=== PATIENT | female | born 1960 | race Caucasian/White ===

== ENCOUNTER 2021-10-05 13:14 | Outpatient (REF) | payer OTHER, SELFPAY ==
--- NOTE | ~2021-10-05 | XR_ITS ---
EXAMINATION: XR CERVICAL SPINE CLINICAL INFORMATION: Neck pain with radiation right upper extremity. No known injury. COMPARISON: Radiographs cervical spine 06/28/2015 TECHNIQUE: Cervical spine is imaged in 6 views: AP, lateral, bilateral oblique, and odontoid x2. FINDINGS: There is mild straightening cervical lordosis. The vertebral bodies are normal in height. The odontoid appears intact. There is no vertebral compression, spondylolisthesis, destructive process, or prevertebral soft tissue swelling. Again, there are degenerative disc changes C5-C6 with mild disc narrowing and vertebral spurring. There are also interval degenerative disc changes at C6-C7. The oblique views show bilateral foraminal spurring at C5-C6, greater on right and also foraminal spurring on left at C6-C7. XR/XR cervical spine min 6V IMPRESSION: 1. Degenerative disc changes C5-C6 and C6-C7. 2. Bilateral foraminal spurring C5-C6 and spurring left C6-C7.
== END 2021-10-05 13:15 | disposition home or self-care (01) ==
LOC: HO.XRAY 13:14
PROVIDERS: PCP Family Medicine; Visit Provider Family Medicine
DX: M54.2 Cervicalgia (principal)
CPT/HCPCS: 72052

== ENCOUNTER 2022-01-02 23:29 | Emergency (ER) | payer OTHER, SELFPAY ==
[2022-01-02 23:40] VITALS: BP 186/117; PULSE 116; RESP 20; TEMP 37.3; O2SAT 95; BMI 34.9
--- NOTE | 2022-01-03 01:53 | ED.GENADULT ---
HPI - General Adult General Chief complaint: General Medical Stated complaint: prolapsed rectum Time Seen by Provider: 01/03/22 01:52 Source: patient Mode of arrival: ambulatory Limitations: no limitations History of Present Illness HPI narrative: patient's history of rectal prolapse had multiple surgeries in the past while trying to move her bowels he noticed prolapse of the rectum about 8 hours ago lower abdominal cramps no bleeding Related Data Allergies Allergy/AdvReac Type Severity Reaction Status Date / Time ENVIRONMENTAL Allergy Mild SNEEZING, Uncoded 05/06/20 15:10 RUNNY EYES Review of Systems Review of Systems: Yes all other systems are reviewed and are negative [facility] Social History Social History Advance Directives: No Advance Directives Information Provided: No Physical Exam ED Vital Signs: Vital Signs - 24 hr 01/02/22 23:40 01/03/22 02:09 Temperature 99.1 F 98.9 F Pulse Rate 116 H 87 Respiratory Rate 20 18 Blood Pressure 186/117 H 154/87 H Pulse Oximetry 95 98 BMI result Body Mass Index 34.9 Appearance: Alert. Oriented X3. No acute distress. CVS: Normal heart rate and rhythm. Pulses normal. Respiratory: No respiratory distress. Equal air entry bilateral, Abdomen: Soft and nontender. Bowel sounds are present, no mass palpable, Rectal: minor rectal mucosa prolapse no full-thickness prolapse Skin: Skin warm and dry. Normal skin color. Normal skin turgor. Extremities: No lower extremity edema. No calf tenderness Neuro: Oriented X 3. No motor deficit. No sensory deficit.No cerebellar signs , cranial nerves II-XII intact Medical Decision Making MDM Narrative Medical decision making narrative: patient with minor rectal mucosal prolapse which was pushed back without much resistance patient felt comfortable after that discharge patient home advised to follow up with surgeon Discharge Plan Discharge Clinical Impression: Partial rectal prolapse Patient Disposition: Home, Self-Care Instructions: Rectal Prolapse (ED) Additional Instructions: avoid straining follow-up with surgeon as advised Referrals: Steven Mitchell MD [Physician] - 1 week Interventions: ED Discharge Assessment Last Done: 01/03/22 02:10 Discharge Date/Time: 01/03/22 02:10
--- NOTE | 2022-01-03 01:56 | PC.NURSE ---
Dr. Hunt and Jessica MONTEMAYOR examined pt and reduced her prolapsed rectum. Pt is now ready for discharge.
[2022-01-03 02:09] VITALS: BP 154/87; PULSE 87; RESP 18; TEMP 37.2; O2SAT 98
== END 2022-01-03 02:10 | disposition home or self-care (01) ==
LOC: HO.ED 03-16 12:03
PROVIDERS: Emergency Provider Internal Medicine; PCP Family Medicine
DX: K62.2 Anal prolapse (principal)
CPT/HCPCS: 99281; 99284

== ENCOUNTER → 2022-01-12 14:00 | Outpatient (BNVA) | payer OTHER, SELFPAY | PROVIDERS: PCP Family Medicine; Referring Provider Family Medicine; Visit Provider Surgery | DX: N81.6 Rectocele (principal) | CPT/HCPCS: 46600 ==

== ENCOUNTER 2022-01-13 07:58 | Outpatient (REF) | payer OTHER, SELFPAY ==
[2022-01-13 09:06] LABS: Estimated Average Glucose 123 mg/dL; Hemoglobin A1c % 5.9 %
[2022-01-13 09:29] LABS: Alanine Aminotransferase 20 U/L (0-31); Aspartate Amino Transferase 18 U/L (5-31); Blood Urea Nitrogen 17 mg/dL (9-16); Estimated Glomerular Filt Rate > 60; Glucose Fasting 126 mg/dL (60-99)
[2022-01-13 09:37] LABS: Creatinine Urine 163.78 mg/dL; Microalbum/Creatinine Ratio Ur 9.7 ug/mg cr
== END 2022-01-13 07:59 | disposition home or self-care (01) ==
LOC: HO.LAB 07:58
PROVIDERS: PCP Family Medicine; Visit Provider Family Medicine
DX: E11.9 Type 2 diabetes mellitus without complications (principal); E78.00 Pure hypercholesterolemia, unspecified; Z79.899 Other long term (current) drug therapy
CPT/HCPCS: 36415; 82043; 82550; 82565; 82947; 83036; 84450; 84460; 84520

== ENCOUNTER 2022-11-17 07:54 | Outpatient (REF) | payer OTHER, SELFPAY ==
[2022-11-17 12:27] LABS: Estimated Average Glucose 120 mg/dL; Hemoglobin A1c % 5.8 %
[2022-11-17 12:32] LABS: Cholesterol 172 mg/dL; Glucose Fasting 111 mg/dL (60-99); HDL Cholesterol 51 mg/dL; LDL Cholesterol Calculated 69 mg/dl; Triglycerides 262 mg/dL
[2022-11-17 13:05] LABS: Creatinine Urine 129.47 mg/dL; Microalbum/Creatinine Ratio Ur 14.6 ug/mg cr
== END 2022-11-17 07:55 | disposition home or self-care (01) ==
LOC: HO.10HDL 07:54
PROVIDERS: Visit Provider Family Medicine
DX: E11.9 Type 2 diabetes mellitus without complications (principal); E78.00 Pure hypercholesterolemia, unspecified
CPT/HCPCS: 36415; 80061; 82043; 82947; 83036

== ENCOUNTER 2023-06-15 11:14 | Outpatient (REF) | payer OTHER, SELFPAY ==
--- NOTE | ~2023-06-15 | XR_ITS ---
EXAMINATION: XR CHEST CLINICAL INFORMATION: Cough for 2 weeks COMPARISON: 03/24/2020 TECHNIQUE: 2 views of the chest were obtained. FINDINGS: There is no gross pneumothorax. Heart size is normal. No pleural effusion. No focal consolidation to suggest pneumonia. Mild degenerative changes in the thoracic spine. XR/XR chest 2V IMPRESSION: No evidence of pneumonia.
== END 2023-06-15 11:15 | disposition home or self-care (01) ==
LOC: HO.XRAY 11:14
PROVIDERS: PCP Family Medicine; Visit Provider Family Medicine
DX: R05.9 Cough, unspecified (principal)
CPT/HCPCS: 71046

== ENCOUNTER 2023-07-10 08:45 | Outpatient (REF) | payer OTHER, SELFPAY ==
[2023-07-10 10:32] LABS: MANUAL DIFF FLAG NO
[2023-07-10 10:40] LABS: Basophils Absolute Auto 0.1 X10*3/uL (0.0-0.2); Basophils Percent Auto 0.6 % (0-2); Eosinophils Absolute Auto 0.3 X10*3/uL (0.0-0.4); Eosinophils Percent Auto 2.5 % (0-4); Hematocrit 38.4 % (37.0-47.0); Hemoglobin 12.3 g/dl (12.0-16.0); Imm Gran Abs Auto 0.03 X10*3/uL (0.00-0.03); Imm Gran Pct Auto 0.3 % (0.0-0.4); Lymphocytes Absolute Auto 2.3 X10*3/uL (1.2-4.9); Mean Corpuscular Hemoglobin 28.8 pg (27.0-33.0); Mean Corpuscular Volume 89.9 fL (80.0-98.0); Mean Platelet Volume 9.6 fL (9.4-12.3); Monocytes Absolute Auto 0.7 X10*3/uL (0.1-1.2); Monocytes Percent Auto 6.5 % (2-11); Neutrophils Absolute Auto 7.5 x10*3/uL (2.0-8.3); Neutrophils Percent Auto 69.1 % (45-73); Platelet Count 393 X10*3/uL (160-400); Red Blood Count 4.27 X10*6/uL (4.20-5.50); Red Cell Distribution Width 13.4 % (11.0-16.0); White Blood Count 10.9 X10*3/uL (4.8-10.8)
[2023-07-10 10:48] LABS: Estimated Average Glucose 128 mg/dL; Hemoglobin A1c % 6.1 % (<6.0)
[2023-07-10 10:59] LABS: Alanine Aminotransferase 15 U/L (0-31); Anion Gap 8 (12-20); Aspartate Amino Transferase 17 U/L (5-31); Blood Urea Nitrogen 11 mg/dL (9-16); Carbon Dioxide 27 mmol/L (22-29); Chloride 108 mmol/L (96-108); Estimated Glomerular Filt Rate > 60; Glucose Fasting 117 mg/dL (60-99); Lipase 16 U/L (8-78); Potassium 4.4 mmol/L (3.3-5.1); Sodium 139 mmol/L (135-145)
[2023-07-10 11:21] LABS: Erythrocyte Sedimentation Rate 31 MM/HR (0-20)
== END 2023-07-10 08:46 | disposition home or self-care (01) ==
LOC: HO.10HDL 08:45
PROVIDERS: Visit Provider Family Medicine
DX: R13.10 Dysphagia, unspecified (principal); I10 Essential (primary) hypertension; E11.9 Type 2 diabetes mellitus without complications; E78.00 Pure hypercholesterolemia, unspecified; Z79.899 Other long term (current) drug therapy
CPT/HCPCS: 36415; 80051; 82550; 82565; 82947; 83036; 83690; 84450; 84460; 84520; 85025; 85652

== ENCOUNTER 2024-02-08 07:40 | Outpatient (REF) | payer OTHER, SELFPAY ==
[2024-02-08 11:04] LABS: Alanine Aminotransferase 18 U/L (0-31); Anion Gap 10 (12-20); Aspartate Amino Transferase 20 U/L (5-31); Blood Urea Nitrogen 13 mg/dL (9-16); Carbon Dioxide 26 mmol/L (22-29); Chloride 109 mmol/L (96-108); Estimated Glomerular Filt Rate > 60; Glucose Fasting 122 mg/dL (60-99); Potassium 4.1 mmol/L (3.3-5.1); Sodium 141 mmol/L (135-145)
[2024-02-08 11:08] LABS: Estimated Average Glucose 123 mg/dL; Hemoglobin A1C 148.5091 umol/L; Hemoglobin A1c % 5.9 % (<6.0)
[2024-02-08 11:43] LABS: Creatinine Urine 150.43 mg/dL; Microalbum/Creatinine Ratio Ur 15.9 ug/mg cr (<30)
== END 2024-02-08 07:41 | disposition home or self-care (01) ==
LOC: HO.10HDL 07:40
PROVIDERS: Visit Provider Family Medicine
DX: E11.9 Type 2 diabetes mellitus without complications (principal); E78.00 Pure hypercholesterolemia, unspecified; I10 Essential (primary) hypertension
CPT/HCPCS: 36415; 80051; 82043; 82550; 82565; 82570; 82947; 83036; 84450; 84460; 84520

== ENCOUNTER 2024-09-09 10:21 | Inpatient (IN) | payer OTHER, SELFPAY ==
--- NOTE | ~2024-09-09 | CT_ITS ---
EXAMINATION: CT ABDOMEN PELVIS WITHOUT IV CONTRAST HISTORY: LLQ pain COMPARISON: Comparison is made with the prior examination dated 01/17/2017. TECHNIQUE: CT scan of the abdomen and pelvis was performed without contrast using standard departmental protocol. Coronal and sagittal reformatted images were generated and reviewed. Oral contrast material was not administered at the request of the referring physician. This CT exam was performed with one or more of the following dose reduction techniques: automated exposure control, adjustment of the mA and/or kV according to patient size, use of iterative reconstruction technique. DLP: 576 mGy-cm FINDINGS: LOWER CHEST: The visualized lung bases are clear. There is no pleural effusion. CARDIOVASCULATURE: The heart is normal in size. There is no pericardial effusion. LIVER: The liver is normal in size and contour. The liver demonstrates diffusely decreased attenuation, consistent with steatosis. GALLBLADDER / BILE DUCTS: There are multiple layering calculi in the gallbladder. There is no intra or extrahepatic biliary ductal dilatation. SPLEEN: The spleen is normal in size and has an unremarkable unenhanced appearance. PANCREAS: The pancreas has an unremarkable unenhanced appearance. ADRENAL GLANDS: Unremarkable. KIDNEYS/RETROPERITONEUM: No renal calculi are identified. There is no hydronephrosis. LYMPH NODES: No retroperitoneal lymphadenopathy is identified in the abdomen or pelvis. VASCULATURE: The abdominal aorta is normal in caliber. MESENTERY/PERITONEUM: No free fluid. No masses. There is no free intraperitoneal gas. STOMACH: There is a large hiatal hernia. The remainder of the stomach is unremarkable. SMALL BOWEL: The small bowel is normal in caliber. COLON: There is extensive diverticulosis of the colon. There is moderate wall thickening and pericolonic inflammatory stranding about the distal descending colon, consistent with diverticulitis. There is no associated extraluminal gas or loculated fluid collection. APPENDIX: Normal. URINARY BLADDER/PELVIC ORGANS: There is a bubble of gas in the urinary bladder which may be due to recent instrumentation. The patient is status post hysterectomy. BONES / SOFT TISSUES: No suspicious bony or soft tissue abnormalities. CT/CT abdomen pelvis wo IV con IMPRESSION: 1. Diverticulitis of the distal descending colon, as described. 2. Probable gas in the urinary bladder which may be due to recent Mr. mentation. Clinical correlation is recommended. 3. Hepatic steatosis. 4. Cholelithiasis. 5. Large hiatal hernia. Electronically signed by: Martin Mendez MD 09/09/2024 03:18 PM RASHID
--- NOTE | 2024-09-09 10:37 | ED_ITS ---
HPI - Abdominal Pain General Chief Complaint: Abdominal Pain Stated Complaint: Abd pain - sent by Dr Trujillo Seen by Provider: 09/09/24 17:35 Source: patient Mode of arrival: ambulatory Limitations: no limitations History of Present Illness ED Provider: Bhargavi Romero NP HPI narrative: Patient is a 64-year-old female with past medical history of endometriosis s/p hysterectomy, GERD, diverticulosis, rectocele s/p repair in her 40s who presents emergency department for evaluation of lower abdominal pain. Reports onset 2 nights ago night with diffuse pain across the lower abdomen progressively worsening today is notably painful to the left lower quadrant associated nausea but no vomiting. She denies associated fevers, chills, nausea, vomiting. She denies genitourinary symptoms. She does admit that she frequently has to manually evacuate her rectum by inserting her fingers into the vagina pushing backwards to pass a bowel movement. She has had history of rectocele repair about 25 years ago, endorses complications associated this with bleeding and ultimately had revision she was reluctant to recently have consideration for another surgery, though she saw Dr. George here he referred her to a specialist in [place] for revision but she did not wish to pursue this as of yet. Though she states that she might consider this given the recent increase in the need for manual evacuation Related Data Home Medications ?Medication ?Instructions ?Recorded ?Confirmed pantoprazole 40 mg tablet,delayed 40 mg PO BEDTIME 01/12/22 09/09/24 release simvastatin 40 mg tablet 40 mg PO BEDTIME 01/12/22 09/09/24 ascorbic acid (vitamin C) 500 mg 500 mg PO DAILY 09/09/24 09/09/24 tablet (Vitamin C) cetirizine 10 mg tablet (Zyrtec) 10 mg PO DAILY 09/09/24 09/09/24 docusate sodium 100 mg tablet 100 mg PO BEDTIME 09/09/24 09/09/24 magnesium oxide 400 mg PO DAILY 09/09/24 09/09/24 multivitamin 1 tab PO DAILY 09/09/24 09/09/24 Allergies Allergy/AdvReac Type Severity Reaction Status Date / Time ENVIRONMENTAL Allergy Mild SNEEZING, Uncoded 09/09/24 10:41 RUNNY EYES Review of Systems Review of Systems Yes all other systems are reviewed and are negative PMFSH Past Medical History Attestation statement: The following information was validated with the patient. Source: old records reviewed Medical History (Updated 09/09/24 @ 19:31 by Bhargavi Romero CNP) Rectocele Hyperlipidemia GERD (gastroesophageal reflux disease) Endometriosis Surgical History History of bilateral breast reduction surgery History of hysterectomy Social History Social History Patient Tobacco Use Status: Never used Tobacco Smoked in Last 30 Days: No Use of substances other than those prescribed or required for medical reasons: No Advance Directives: No Advance Directives Information Provided: Yes Do you have a plan to hurt others: No Plan Nutrition Risks: No Nutritional Risk Physical Exam ED Vital Signs: Vital Signs - 24 hr 09/09/24 10:40 09/09/24 18:32 Temperature 98.6 F 98.1 F Pulse Rate 111 H 80 Respiratory Rate 18 16 Blood Pressure 177/98 H 151/91 H Pulse Oximetry 97 95 Oxygen Delivery Method Room Air Room Air BMI result Body Mass Index 33.4 Appearance: Alert.?Oriented to person, place and time. No acute distress.?Normal affect.?? Neck: Normal inspection.? Neck supple.?? CVS: Heart sounds normal. Normal heart rate and rhythm.? Pulses normal.?? Respiratory: No respiratory distress.? Lung sounds clear to auscultation bilaterally?? Abdomen: Soft and non-tender. No rebound tenderness at McBurney's point. Negative psoas sign. Negative Rovsing sign. Negative Dillard sign. No CVAT. Normoactive bowel sounds. No pulsatile mass.?? Skin: Skin warm and dry.? Normal skin color.? Extremities: No lower extremity edema.? Neuro: Moves all extremities spontaneously. Sensation intact bilaterally. Ambulates with normal steady gait. Course Course Course Narrative: This is a Rapid Medical Examination (RME) performed by Joya Mcknight PA-C in triage. Full HPI, ROS, assessment and treatment plan per primary provider in the Main ED. 64 yo female with history of endometrosis s/p hyperectomy, GERD, diverticulosis, rectocele s/p repair who presents to the ER for evaluation of LLQ pain that started yesterday and got worse last night. + nausea but no vomiting. Has been constipated and only having small BMs. No fevers. Pain currently 7/10. Abd is soft with LLQ tenderness to deep palpation. HR 110s, appears uncomfortable. Plan: labs, UA, imaging per primary provider Medical Decision Making Medical Decision Making [facility] Narrative: [place]ks of care for patient 18:15 Patient is a 64-year-old female with past medical history of endometriosis s/p hysterectomy, GERD, diverticulosis, rectocele s/p repair in her 40s who presents emergency department for evaluation of lower abdominal pain. Reports onset yesterday night diffuse across the lower abdomen progressively worsening today is notably painful to the left lower quadrant associated nausea but no vomiting. She arrived mildly tachycardic but afebrile. Reviewed laboratory indices obtained prior to my assumption of care; CBC revealing leukocytosis of 15,700 with left shift, no anemia, no thrombocytopenia. No electrolyte derangement. No MIRIAM. LFTs and lipase within normal range. Urinalysis with microscopic hematuria 1+ leukocyte esterase trace urine bacteria, but no reported genitourinary symptoms to suggest acute UTI. Viral serologies are negative. A CT scan of the abdomen and pelvis without IV contrast was obtained prior to my assumption of care; revealing diverticulitis of the descending colon without evidence of perforation or abscess, probable gas in the urinary bladder may be due to recent instrumentation. Denies any recent bladder instrumentation to suggest a cause for this, given aforementioned urinalysis findings although no genitourinary symptoms, considered possibility for emphysematous cystitis, or rectovesical fistula secondary to diverticulitis. On my interpretation of CT imaging I do not see adjacent bowel to the area of gas/air present in the bladder. I have consulted with surgery, Dr. Steinberg review CT imaging to weigh in for interpretation. Given infectious etiology and leukocytosis she meets SIRS criteria, given CT findings will cover with IV Zosyn, will obtain blood cultures and lactic acid, no hypotension at this time. Patient receive additionally 1 L normal saline IV fluid Differential Diagnosis Differential Diagnoses: The differential diagnosis associated with the presentation includes (See narrative above) Admitting to surgery service under Dr. 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 (See narrative above) 09/09/24 11:45 09/09/24 11:45 Labs: Lab Results 09/09/24 09/09/24 09/09/24 Range/Units 11:41 11:45 11:46 WBC 15.7 H (4.8-10.8) X10*3/uL RBC 4.90 (4.20-5.50) X10*6/uL Hgb 14.7 (12.0-16.0) g/dl Hct 43.3 (37.0-47.0) % MCV 88.4 (80.0-98.0) fL MCH 30.0 (27.0-33.0) pg MCHC 33.9 (31.0-35.0) g/dl RDW 13.2 (11.0-16.0) % Plt Count 312 (160-400) X10*3/uL MPV 9.1 L (9.4-12.3) fL Immature Gran % (Auto) 0.3 (0.0-0.4) % Neut % (Auto) 70.4 (45-73) % Lymph % (Auto) 20.3 (20-40) % [place] % (Auto) 8.4 (2-11) % Eos % (Auto) 0.3 (0-4) % Baso % (Auto) 0.3 (0-2) % Lymph # (Auto) 3.2 (1.2-4.9) X10*3/uL [place] # (Auto) 1.3 H (0.1-1.2) X10*3/uL Eos # (Auto) 0.1 (0.0-0.4) X10*3/uL Baso # (Auto) 0.0 (0.0-0.2) X10*3/uL Abs Immat Gran (auto) 0.05 H (0.00-0.03) X10*3/uL Absolute Neuts (auto) 11.1 H (2.0-8.3) x10*3/uL Absolute Nucleated RBC 0.000 (0.0-0.012) X10*3/uL Nucleated RBC % (auto) 0.0 (0.0-0.2) /100WBC Sodium 136 (135-145) mmol/L Potassium 4.4 (3.3-5.1) mmol/L Chloride 104 (96-108) mmol/L Carbon Dioxide 24 (22-29) mmol/L Anion Gap 12 (12-20) BUN 10 (9-16) mg/dL Creatinine 0.72 (0.5-1.4) mg/dL Estim Creat Clear Calc 71.7 Estimated GFR > 60 Random Glucose 134 H (60-115) mg/dL Lactic Acid (0.5-2.0) mmol/L Calcium 9.5 (8.4-10.2) mg/dL Magnesium 2.3 (1.6-2.6) mg/dL Total Bilirubin 0.7 (0.0-1.0) mg/dL Direct Bilirubin 0.2 (0.0-0.5) mg/dL AST 19 (5-31) U/L ALT 23 (0-31) U/L Alkaline Phosphatase 86 (39-117) U/L Total Protein 8.7 H (6.5-8.0) g/dL Albumin 4.5 (3.5-5.0) g/dL Lipase 15 (8-78) U/L Urine Color Dark Yellow Urine Appearance Clear Urine pH 6.5 (5.0-9.0) Ur Specific [place] 1.025 (1.005-1.025) Urine Protein 30 (1+) H (Neg-Trace) mg/dL Urine Glucose (UA) Negative (Negative) mg/dL Urine Ketones 15 (Negative) mg/dL Urine Blood Large (3+) H (Negative) Urine Nitrite Negative (Negative) Ur Leukocyte Esterase Small (1+) H (Negative) Urine RBC >20 H (0-2) /HPF Urine WBC 0-5 (0-5) /HPF Ur Squamous Epith Cells 0-2 (0-2) /HPF Urine Bacteria Trace (None Seen) Hyaline Casts 0-2 (0-2) /LPF Influenza Type A (PCR) NEGATIVE (Negative) Influenza Type B (PCR) NEGATIVE (Negative) RSV RNA Qual (PCR) NEGATIVE (Negative) SARS-CoV-2 RNA (RT-PCR) NEGATIVE (Negative) 09/09/24 Range/Units 18:48 WBC (4.8-10.8) X10*3/uL RBC (4.20-5.50) X10*6/uL Hgb (12.0-16.0) g/dl Hct (37.0-47.0) % MCV (80.0-98.0) fL MCH (27.0-33.0) pg MCHC (31.0-35.0) g/dl RDW (11.0-16.0) % Plt Count (160-400) X10*3/uL MPV (9.4-12.3) fL Immature Gran % (Auto) (0.0-0.4) % Neut % (Auto) (45-73) % Lymph % (Auto) (20-40) % [place] % (Auto) (2-11) % Eos % (Auto) (0-4) % Baso % (Auto) (0-2) % Lymph # (Auto) (1.2-4.9) X10*3/uL [place] # (Auto) (0.1-1.2) X10*3/uL Eos # (Auto) (0.0-0.4) X10*3/uL Baso # (Auto) (0.0-0.2) X10*3/uL Abs Immat Gran (auto) (0.00-0.03) X10*3/uL Absolute Neuts (auto) (2.0-8.3) x10*3/uL Absolute Nucleated RBC (0.0-0.012) X10*3/uL Nucleated RBC % (auto) (0.0-0.2) /100WBC Sodium (135-145) mmol/L Potassium (3.3-5.1) mmol/L Chloride (96-108) mmol/L Carbon Dioxide (22-29) mmol/L Anion Gap (12-20) BUN (9-16) mg/dL Creatinine (0.5-1.4) mg/dL Estim Creat Clear Calc Estimated GFR Random Glucose (60-115) mg/dL Lactic Acid 1.1 (0.5-2.0) mmol/L Calcium (8.4-10.2) mg/dL Magnesium (1.6-2.6) mg/dL Total Bilirubin (0.0-1.0) mg/dL Direct Bilirubin (0.0-0.5) mg/dL AST (5-31) U/L ALT (0-31) U/L Alkaline Phosphatase (39-117) U/L Total Protein (6.5-8.0) g/dL Albumin (3.5-5.0) g/dL Lipase (8-78) U/L Urine Color Urine Appearance Urine pH (5.0-9.0) Ur Specific [place] (1.005-1.025) Urine Protein (Neg-Trace) mg/dL Urine Glucose (UA) (Negative) mg/dL Urine Ketones (Negative) mg/dL Urine Blood (Negative) Urine Nitrite (Negative) Ur Leukocyte Esterase (Negative) Urine RBC (0-2) /HPF Urine WBC (0-5) /HPF Ur Squamous Epith Cells (0-2) /HPF Urine Bacteria (None Seen) Hyaline Casts (0-2) /LPF Influenza Type A (PCR) (Negative) Influenza Type B (PCR) (Negative) RSV RNA Qual (PCR) (Negative) SARS-CoV-2 RNA (RT-PCR) (Negative) Independent Interpretation I performed an independent interpretation of an: CT Scan (See narrative above) Radiology Impression Discussion of test interpretation with radiology: I have reviewed the radiologist's reading. Radiologist Impression: CT/CT abdomen pelvis wo IV con IMPRESSION: 1. Diverticulitis of the distal descending colon, as described. 2. Probable gas in the urinary bladder which may be due to recent Mr. mentation. Clinical correlation is recommended. 3. Hepatic steatosis. 4. Cholelithiasis. 5. Large hiatal hernia. External Record Review External record reviewed: Outpatient record Prescription Management I considered prescription management with: Pain Medication and Antibiotic Medications Administered Generic Name Dose Route Start Last Admin Trade Name Freq PRN Reason Stop Dose Admin Lactated Ringer's 1,000 mls @ 100 mls/hr 09/09/24 20:00 09/09/24 20:06 Lr IVCONT 100 mls/hr .Q10H YOBANI Administration Piperacillin Sod/Tazobactam 50 mls @ 100 mls/hr 09/10/24 01:00 09/10/24 01:14 Sod 3.375 gm/ Sodium Chloride IV Infused Q6H YOBANI Infusion Melatonin 6 mg 09/09/24 19:54 09/09/24 20:15 Melatonin 3 Mg Tablet PO 6 mg BEDTIME PRN Administration Insomnia Morphine Sulfate 3 mg 09/09/24 19:57 09/10/24 00:06 Morphine Sulfate 4 Mg/Ml Cartridge IVPUSH 3 mg RQ4H PRN Administration Pain, Severe (Pain Scale 7-10) Protocol Ondansetron HCl 4 mg 09/09/24 19:54 09/09/24 23:45 Ondansetron Hcl 4 Mg/2 Ml Vial IVPUSH 4 mg Q8H PRN Administration Nausea and Vomiting Sodium Chloride 3 ml 09/10/24 00:00 09/10/24 00:07 0.9 % Sodium Chloride Flush 3 Ml Syringe IVFLUSH Not Given QSHIFT [facility] Discontinued Medications Generic Name Dose Route Start Last Admin Trade Name Freq PRN Reason Stop Dose Admin Acetaminophen 975 mg 09/09/24 16:41 09/09/24 16:50 Acetaminophen 325 Mg Tablet PO 09/09/24 16:42 975 mg ONCE ONE Administration Famotidine 20 mg 09/09/24 21:00 09/09/24 20:15 Famotidine 20 Mg Tablet PO 20 mg BID YOBANI Administration Piperacillin Sod/Tazobactam 100 mls @ 200 mls/hr 09/09/24 18:31 09/09/24 19:58 Sod 4.5 gm/ Sodium Chloride IV 09/09/24 19:00 Infused ONCE ONE Infusion Sodium Chloride 1,000 mls @ 999 mls/hr 09/09/24 18:45 09/09/24 19:58 Ns IV 09/09/24 19:45 Infused .Q1H1M YOBANI Infusion Discharge Plan Discharge Clinical Impression: Diverticulitis Patient Disposition: Admitted As Inpatient
[2024-09-09 10:40] VITALS: BP 177/98; PULSE 111; RESP 18; TEMP 37; O2SAT 97; BMI 33.4
[2024-09-09 11:49] LABS: MANUAL DIFF FLAG NO
[2024-09-09 11:53] LABS: Basophils Percent Auto 0.3 % (0-2); Eosinophils Absolute Auto 0.1 X10*3/uL (0.0-0.4); Eosinophils Percent Auto 0.3 % (0-4); Hematocrit 43.3 % (37.0-47.0); Hemoglobin 14.7 g/dl (12.0-16.0); Imm Gran Abs Auto 0.05 X10*3/uL (0.00-0.03); Imm Gran Pct Auto 0.3 % (0.0-0.4); Lymphocytes Absolute Auto 3.2 X10*3/uL (1.2-4.9); Lymphocytes Percent Auto 20.3 % (20-40); Mean Corpuscular HGB Conc 33.9 g/dl (31.0-35.0); Mean Corpuscular Volume 88.4 fL (80.0-98.0); Mean Platelet Volume 9.1 fL (9.4-12.3); Monocytes Absolute Auto 1.3 X10*3/uL (0.1-1.2); Monocytes Percent Auto 8.4 % (2-11); Neutrophils Absolute Auto 11.1 x10*3/uL (2.0-8.3); Neutrophils Percent Auto 70.4 % (45-73); Platelet Count 312 X10*3/uL (160-400); Red Cell Distribution Width 13.2 % (11.0-16.0); White Blood Count 15.7 X10*3/uL (4.8-10.8)
[2024-09-09 11:53] LABS: Appearance Urine Clear; Color Urine Dark Yellow; Glucose Urine UA Negative (Negative); Leukocyte Esterase Urine Small (1+) (Negative); Nitrite Urine Negative (Negative); PH 6.5 (5.0-9.0); Specific Gravity - Urine 1.025 (1.005-1.025); UMIC TRIGGER UACC YES; Urine Blood Large (3+) (Negative); Urine Ketones 15 mg/dL (Negative); Urine Protein 30 (1+) mg/dL (Neg-Trace)
[2024-09-09 12:02] LABS: Bacteria Urine Trace (None Seen); Hyaline Casts Urine 0-2 /LPF (0-2); RBC Urine >20 /HPF (0-2); Squamous Epithelial Cell Urine 0-2 /HPF (0-2); UACC Culture Trigger YES; WBC Urine 0-5 /HPF (0-5)
[2024-09-09 12:07] LABS: Alanine Aminotransferase 23 U/L (0-31); Albumin Level 4.5 g/dL (3.5-5.0); Alkaline Phosphatase 86 U/L (39-117); Anion Gap 12 (12-20); Aspartate Amino Transferase 19 U/L (5-31); Bilirubin Direct 0.2 mg/dL (0.0-0.5); Bilirubin Total 0.7 mg/dL (0.0-1.0); Blood Urea Nitrogen 10 mg/dL (9-16); Calcium 9.5 mg/dL (8.4-10.2); Carbon Dioxide 24 mmol/L (22-29); Chloride 104 mmol/L (96-108); Creatinine Clr Calc Pharmacy 71.7; Estimated Glomerular Filt Rate > 60; Glucose Random 134 mg/dL (60-115); Lipase 15 U/L (8-78); Magnesium 2.3 mg/dL (1.6-2.6); Potassium 4.4 mmol/L (3.3-5.1); Sodium 136 mmol/L (135-145); Total Protein 8.7 g/dL (6.5-8.0)
[2024-09-09 12:28] LABS: Influenza A PCR NEGATIVE (Negative); Influenza B PCR NEGATIVE (Negative); Resp Syncy Virus RNA Qual PCR NEGATIVE (Negative); SARS COV2 PCR INHOUSE NEGATIVE (Negative)
[2024-09-09] MEDS: Acetaminophen 325 MG TABLET 975 MG PO (16:50)
[2024-09-09 18:32] VITALS: BP 151/91; PULSE 80; RESP 16; TEMP 36.7; O2SAT 95
[2024-09-09] MEDS: 0.9 % Sodium Chloride 1,000 ML 999 ML IV (18:49)
[2024-09-09 19:10] LABS: Lactic Acid 1.1 mmol/L (0.5-2.0)
[2024-09-09] MEDS: Piperacillin Sodium/Tazobactam 4.5 GM in 0.9 % Sodium Chloride 100 ML IV (19:16)
--- NOTE | 2024-09-09 19:51 | PHA.MEDREC ---
Addendum entered by Vitor Yañez RPh 09/09/24 20:50: Med rec was reviewed by [facility]. Original Note: Pharmacy Consult ? Medication Reconciliation Pharmacy has completed the medication reconciliation. Spoke to patient to confirm med list.
[2024-09-09] MEDS: Lactated Ringers 1,000 ML 100 ML IVCONT (20:06)
[2024-09-09] MEDS: Melatonin 3 MG TABLET 6 MG PO (20:15)
[2024-09-09] MEDS: Famotidine 20 MG TABLET PO (20:15)
[2024-09-09] MEDS: Morphine Sulfate 4 MG/ML CARTRIDGE 3 MG IVPUSH (20:16)
[2024-09-09 21:46] VITALS: BP 170/82; PULSE 74; RESP 16; O2SAT 97
--- NOTE | 2024-09-09 23:34 | P.HPGS_ITS ---
History of Present Illness History of Present Illness Date of Service: 09/09/24 Chief complaint: abdominal pain Narrative: Jenny Mae is a 64 year old female With a known history of diverticulitis in the past who comes in with a bad a 36 hour history of abdominal pain not feeling well consistent with diverticulitis. Here on workup CT scan of the abdomen and pelvis reveals inflammatory changes in the descending colon but also a little bit of air in her bladder. She has not had any Haas's or any instrumentation of her bladder. She has had multiple episodes of diverticulitis in the past. She has also had i significant issues in her youth with endometriosis in his had multiple operations for this. She eventually underwent a hysterectomy and bilateral oophorectomy. Eventually she had issues with a significant rectocele and had an surgical repair of this at [facility] about 25 years ago. This was complicated by some bleeding and other issues which eventually required her to have revision and removal of the mesh for the rectocele repair. As a result the rectocele issue recurred and she did see Dr. George here several years ago who suggested that she be seen in [place] for consideration for revision. At this time she still has to manually evacuate the rectum by putting her fingers in her vagina and pushing back to get the stool out. She goes a little bit multiple times in the morning in order to really try to evacuate as much as possible. She denies any urinary symptoms she denies urinating any stool or air. In addition she also had a Nelly fundoplication in the past, she had a lot of bad heartburn reflux disease. She says this is much improved. CT scan of her abdomen and pelvis does show however significant hiatal hernia with some moderate stomach in the chest. On a day-to-day basis she says this does not bother her though. Review of Systems Review of Systems: Yes all other systems are reviewed and are negative FORMERLY [facility], 1928–1983 Past Medical History Medical History (Updated 09/09/24 @ 19:31 by Bhargavi Romero CNP) Rectocele Hyperlipidemia GERD (gastroesophageal reflux disease) Endometriosis Surgical History Surgical History History of bilateral breast reduction surgery History of hysterectomy Social History Social History Patient Tobacco Use Status: Never used Tobacco Smoked in Last 30 Days: No Use of substances other than those prescribed or required for medical reasons: No Advance Directives: No Advance Directives Information Provided: Yes Do you have a plan to hurt others: No Plan Nutrition Risks: No Nutritional Risk Meds Allergies Allergy/AdvReac Type Severity Reaction Status Date / Time ENVIRONMENTAL Allergy Mild SNEEZING, Uncoded 09/09/24 10:41 RUNNY EYES Active Medications: Current Medications Acetaminophen (Acetaminophen 325 Mg Tablet) 650 mg PO Q6H PRN PRN Reason: Pain, Mild 1-3,fever,headache Calcium Carbonate (Calcium Carbonate 750 Mg Tab.Chew) 750 mg PO Q4H PRN PRN Reason: Heartburn Famotidine (Famotidine 20 Mg Tablet) 20 mg PO BID [facility] Last Admin: 09/09/24 20:15 Dose: 20 mg Lactated Ringer's (Lr) 1,000 mls @ 100 mls/hr IVCONT .Q10H [facility] Last Admin: 09/09/24 20:06 Dose: 100 mls/hr Piperacillin Sod/Tazobactam (Sod 3.375 gm/ Sodium Chloride) 50 mls @ 100 mls/hr IV Q6H [facility] Magnesium Hydroxide (Milk Of Magnesia 30 Ml Oral.Susp) 30 ml PO DAILY PRN PRN Reason: Constipation Melatonin (Melatonin 3 Mg Tablet) 6 mg PO BEDTIME PRN PRN Reason: Insomnia Last Admin: 09/09/24 20:15 Dose: 6 mg Morphine Sulfate (Morphine Sulfate 4 Mg/Ml Cartridge) 3 mg IVPUSH RQ4H PRN; Protocol PRN Reason: Pain, Severe (Pain Scale 7-10) Last Admin: 09/09/24 20:16 Dose: 3 mg Ondansetron HCl (Ondansetron Hcl 4 Mg/2 Ml Vial) 4 mg IVPUSH Q8H PRN PRN Reason: Nausea and Vomiting Sodium Chloride (0.9 % Sodium Chloride Flush 3 Ml Syringe) 3 ml IVFLUSH QSHIFT [facility] Home Medications ?Medication ?Instructions ?Recorded ?Confirmed ?Last Taken ?Type pantoprazole 40 mg tablet,delayed 40 mg PO BEDTIME 01/12/22 09/09/24 09/08/24 History release simvastatin 40 mg tablet 40 mg PO BEDTIME 01/12/22 09/09/24 09/08/24 History ascorbic acid (vitamin C) 500 mg 500 mg PO DAILY 09/09/24 09/09/24 09/08/24 History tablet (Vitamin C) cetirizine 10 mg tablet (Zyrtec) 10 mg PO DAILY 09/09/24 09/09/24 09/08/24 History docusate sodium 100 mg tablet 100 mg PO BEDTIME 09/09/24 09/09/24 09/08/24 History magnesium oxide 400 mg PO DAILY 09/09/24 09/09/24 09/08/24 History multivitamin 1 tab PO DAILY 09/09/24 09/09/24 09/08/24 History Physical Exam Vital Signs: Vital Signs: Last Vital Signs Temp 98.1 F 09/09/24 18:32 Pulse 74 09/09/24 21:46 Resp 16 09/09/24 21:46 BP 170/82 H 09/09/24 21:46 Pulse Ox 97 09/09/24 21:46 O2 Del Method Room Air 09/09/24 21:46 BMI result Body Mass Index 33.4 Const: General: cooperative and acute distress mild Nutritional Appearance: overweight Orientation/consciousness: oriented to person, oriented to place and oriented to time Resp: Effort & Inspection: normal respiratory effort and able to speak in complete sentences Auscultation: clear to auscultation bilaterally Cardio: Rate: regular rate Rhythm: regular rhythm GI: Other: Abdomen is soft nondistended tender in the left lower quadrant and suprapubic area with some mild guarding no rebound no peritoneal signs active bowel sounds no masses noted Skin: General skin exam: no rashes or lesions noted Neuro: General: oriented to person, oriented to place and oriented to time Cranial nerves: Yes CN's II-XII intact bilaterally Extrem: General: Yes normal to inspection Psych: Appearance: grossly normal Mental Status: mental status grossly normal Speech and movement: Normal speech and movement present Affect: normal affect Attitude: cooperative Thought process: Normal thought process present Thought content: Normal thought content present Insight: Good insight present (Psych) Judgement: Good judgement present (Psych) Results Results Labs: Short CBC 09/09/24 Range/Units 11:45 WBC 15.7 H (4.8-10.8) X10*3/uL Hgb 14.7 (12.0-16.0) g/dl Hct 43.3 (37.0-47.0) % Plt Count 312 (160-400) X10*3/uL BMP 09/09/24 11:45 Sodium 136 Potassium 4.4 Chloride 104 Carbon Dioxide 24 BUN 10 Creatinine 0.72 Calcium 9.5 Liver Function 09/09/24 Range/Units 11:45 Total Bilirubin 0.7 (0.0-1.0) mg/dL Direct Bilirubin 0.2 (0.0-0.5) mg/dL AST 19 (5-31) U/L ALT 23 (0-31) U/L Alkaline Phosphatase 86 (39-117) U/L Albumin 4.5 (3.5-5.0) g/dL Urine 09/09/24 Range/Units 11:41 Urine Color Dark Yellow Urine Appearance Clear Urine pH 6.5 (5.0-9.0) Ur Specific [place] 1.025 (1.005-1.025) Urine Protein 30 (1+) H (Neg-Trace) mg/dL Urine Glucose (UA) Negative (Negative) mg/dL Abdomen CT scan report/results: report reviewed and image reviewed CT scan - pelvis: report reviewed and image reviewed Additional studies: [place] [id number] CT Scan Report Signed Patient: Jenny Helton MR#: [id number] : 1960 Acct:[id number] Age/Sex: 64 / F ADM Date: 09/09/24 Loc: .ED Attending Dr: Ordering Physician: Anay Mcknight Date of Service: 09/09/24 Procedure(s): CT abdomen pelvis wo IV con Accession Number(s): [id number] cc: Rene Collier MD; Anay Mcknight~ Report Number: [id number]: Total DLP = 576.00 mGy-cm EXAMINATION: CT ABDOMEN PELVIS WITHOUT IV CONTRAST HISTORY: LLQ pain COMPARISON: Comparison is made with the prior examination dated 01/17/2017. TECHNIQUE: CT scan of the abdomen and pelvis was performed without contrast using standard departmental protocol. Coronal and sagittal reformatted images were generated and reviewed. Oral contrast material was not administered at the request of the referring physician. This CT exam was performed with one or more of the following dose reduction techniques: automated exposure control, adjustment of the mA and/or kV according to patient size, use of iterative reconstruction technique. DLP: 576 mGy-cm FINDINGS: LOWER CHEST: The visualized lung bases are clear. There is no pleural effusion. CARDIOVASCULATURE: The heart is normal in size. There is no pericardial effusion. LIVER: The liver is normal in size and contour. The liver demonstrates diffusely decreased attenuation, consistent with steatosis. GALLBLADDER / BILE DUCTS: There are multiple layering calculi in the gallbladder. There is no intra or extrahepatic biliary ductal dilatation. SPLEEN: The spleen is normal in size and has an unremarkable unenhanced appearance. PANCREAS: The pancreas has an unremarkable unenhanced appearance. ADRENAL GLANDS: Unremarkable. KIDNEYS/RETROPERITONEUM: No renal calculi are identified. There is no hydronephrosis. LYMPH NODES: No retroperitoneal lymphadenopathy is identified in the abdomen or pelvis. VASCULATURE: The abdominal aorta is normal in caliber. MESENTERY/PERITONEUM: No free fluid. No masses. There is no free intraperitoneal gas. STOMACH: There is a large hiatal hernia. The remainder of the stomach is unremarkable. SMALL BOWEL: The small bowel is normal in caliber. COLON: There is extensive diverticulosis of the colon. There is moderate wall thickening and pericolonic inflammatory stranding about the distal descending colon, consistent with diverticulitis. There is no associated extraluminal gas or loculated fluid collection. APPENDIX: Normal. URINARY BLADDER/PELVIC ORGANS: There is a bubble of gas in the urinary bladder which may be due to recent instrumentation. The patient is status post hysterectomy. BONES / SOFT TISSUES: No suspicious bony or soft tissue abnormalities. CT/CT abdomen pelvis wo IV con IMPRESSION: 1. Diverticulitis of the distal descending colon, as described. 2. Probable gas in the urinary bladder which may be due to recent Mr. mentation. Clinical correlation is recommended. 3. Hepatic steatosis. 4. Cholelithiasis. 5. Large hiatal hernia. 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 Now coming in with repeat episode of diverticulitis. In workup CT scan of the abdomen and pelvis shows some small pockets of air in the bladder with maybe suggestion of fistula. The patient denies any urinary symptoms although urinalysis consistent for red and white blood cells. Plan to admit NPO with just some sips of liquids IV antibiotics and try to get her diverticulitis better. Consider Urology consult for possible cystoscopy and evaluation of her bladder. If there is indeed a fistula present then discussion for an elective repair and resection of her diverticular disease can be had. Because of her history with the endometriosis surgeries as well as her rectocele issue there probably would be a little more of a difficult pelvis to operate in the process of carrying out the surgery most likely it would be beneficial to try to repair her rectocele as well. She may do better at a tertiary care facility for all of this with the feel optimistic that we can get her better from at least see acute diverticulitis episode. She understands and agrees with the above plan. Total time managing care of this patient today: 60 minutes. Quality Stroke Does the patient have a stroke diagnosis?: No VTE Prior VTE?: No VTE Risk Level:: Surgical - low VTE Device Contraindication: N/A - Device Ordered VTE Drug Contraindication: N/A - Med Ordered Procedures Date of Service Date of Service: 09/09/24
[2024-09-09 23:40] VITALS: BP 167/83; PULSE 68; RESP 16; TEMP 36.7; O2SAT 96
[2024-09-09] MEDS: ondansetron HCL 4 MG/2 ML VIAL IVPUSH (23:45)
[2024-09-10] MEDS: Piperacillin Sodium/Tazobactam 3.375 GM in 0.9 % Sodium Chloride 50 ML IV ×4 (00:06→18:24)
[2024-09-10] MEDS: Morphine Sulfate 4 MG/ML CARTRIDGE 3 MG IVPUSH ×3 (00:06→20:06)
[2024-09-10 04:13] VITALS: BP 164/78; PULSE 68; RESP 16; TEMP 36.6; O2SAT 95
[2024-09-10 04:54] LABS: MANUAL DIFF FLAG NO
[2024-09-10 04:55] LABS: Basophils Absolute Auto 0.1 X10*3/uL (0.0-0.2); Basophils Percent Auto 0.5 % (0-2); Eosinophils Absolute Auto 0.1 X10*3/uL (0.0-0.4); Eosinophils Percent Auto 1.1 % (0-4); Hematocrit 35.8 % (37.0-47.0); Hemoglobin 12.1 g/dl (12.0-16.0); Imm Gran Abs Auto 0.02 X10*3/uL (0.00-0.03); Imm Gran Pct Auto 0.2 % (0.0-0.4); Lymphocytes Absolute Auto 2.7 X10*3/uL (1.2-4.9); Lymphocytes Percent Auto 26.3 % (20-40); Mean Corpuscular HGB Conc 33.8 g/dl (31.0-35.0); Mean Corpuscular Hemoglobin 30.6 pg (27.0-33.0); Mean Corpuscular Volume 90.6 fL (80.0-98.0); Mean Platelet Volume 9.1 fL (9.4-12.3); Monocytes Absolute Auto 0.8 X10*3/uL (0.1-1.2); Monocytes Percent Auto 8.1 % (2-11); Neutrophils Absolute Auto 6.7 x10*3/uL (2.0-8.3); Neutrophils Percent Auto 63.8 % (45-73); Platelet Count 245 X10*3/uL (160-400); Red Blood Count 3.95 X10*6/uL (4.20-5.50); Red Cell Distribution Width 13.2 % (11.0-16.0); White Blood Count 10.4 X10*3/uL (4.8-10.8)
[2024-09-10 05:08] LABS: Anion Gap 12 (12-20); Blood Urea Nitrogen 8 mg/dL (9-16); Calcium 8.8 mg/dL (8.4-10.2); Carbon Dioxide 22 mmol/L (22-29); Chloride 108 mmol/L (96-108); Creatinine Clr Calc Pharmacy 80.7; Estimated Glomerular Filt Rate > 60; Glucose Random 124 mg/dL (60-115); Potassium 4.1 mmol/L (3.3-5.1); Sodium 138 mmol/L (135-145)
[2024-09-10] MEDS: Lactated Ringers 1,000 ML 100 ML IVCONT ×2 (06:13→15:46)
[2024-09-10] MEDS: Pantoprazole Sodium 40 MG/10 ML VIAL IVPUSH (06:23)
--- NOTE | 2024-09-10 07:58 | PM.PNGS ---
Subjective Subjective Date of Service: 09/10/24 Interval history: Feels improved, LLQ pain less this morning. Mild nausea. Denies dysuria, hematuria, fecaluria, pneumoturia. Has colonoscopies every 3 years and is due for one. Physical Exam Vital Signs: Vital Signs: Last Vital Signs Temp 97.9 F 09/10/24 04:13 Pulse 68 09/10/24 04:13 Resp 16 09/10/24 04:13 BP 164/78 H 09/10/24 04:13 Pulse Ox 95 09/10/24 04:13 O2 Del Method Room Air 09/10/24 04:13 BMI result Body Mass Index 33.4 Const: General: comfortable, no acute distress and alert Orientation/consciousness: patient oriented x3 Resp: Effort & Inspection: normal respiratory effort GI: Other: corpulent abdomen Inspection: No distended Palpation (GI): Soft to palpation, Tenderness to palpation present (GI) (mild LLQ , suprapubic tenderness) with no rebound tenderness and no guarding Percussion: Yes normal to percussion Skin: General skin exam: no rashes or lesions noted Neuro: General: patient oriented x3 and moves all extremities Objective Data Active Medications Acetaminophen (Acetaminophen 325 Mg Tablet) 650 mg PO Q6H PRN PRN Reason: Pain, Mild 1-3,fever,headache Calcium Carbonate (Calcium Carbonate 750 Mg Tab.Chew) 750 mg PO Q4H PRN PRN Reason: Heartburn Lactated Ringer's (Lr) 1,000 mls @ 100 mls/hr IVCONT .Q10H [facility] Last Admin: 09/10/24 06:13 Dose: 100 mls/hr Documented By: PREETI Piperacillin Sod/Tazobactam (Sod 3.375 gm/ Sodium Chloride) 50 mls @ 100 mls/hr IV Q6H [facility] Last Admin: 09/10/24 07:21 Dose: 100 mls/hr Documented By: FELICITA Magnesium Hydroxide (Milk Of Magnesia 30 Ml Oral.Susp) 30 ml PO DAILY PRN PRN Reason: Constipation Melatonin (Melatonin 3 Mg Tablet) 6 mg PO BEDTIME PRN PRN Reason: Insomnia Last Admin: 09/09/24 20:15 Dose: 6 mg Documented By: CRISTY Morphine Sulfate (Morphine Sulfate 4 Mg/Ml Cartridge) 3 mg IVPUSH RQ4H PRN; Protocol PRN Reason: Pain, Severe (Pain Scale 7-10) Last Admin: 09/10/24 06:23 Dose: 3 mg Documented By: PREETI Ondansetron HCl (Ondansetron Hcl 4 Mg/2 Ml Vial) 4 mg IVPUSH Q8H PRN PRN Reason: Nausea and Vomiting Last Admin: 09/09/24 23:45 Dose: 4 mg Documented By: PREETI Pantoprazole Sodium (Pantoprazole Sodium 40 Mg/10 Ml Vial) 40 mg IVPUSH DAILY@0630 [facility] Last Admin: 09/10/24 06:23 Dose: 40 mg Documented By: PREETI Sodium Chloride (0.9 % Sodium Chloride Flush 3 Ml Syringe) 3 ml IVFLUSH QSHIFT [facility] Last Admin: 09/10/24 07:22 Dose: Not Given Documented By: FELICITA Non-Admin Reason: IV Running Labs 09/10/24 04:46 09/10/24 04:46 Labs: Laboratory Results - last 24 hr 09/09/24 09/09/24 09/09/24 11:41 11:45 11:46 MCV 88.4 MCH 30.0 MCHC 33.9 RDW 13.2 Plt Count 312 MPV 9.1 L Immature Gran % (Auto) 0.3 Neut % (Auto) 70.4 Lymph % (Auto) 20.3 [place] % (Auto) 8.4 Eos % (Auto) 0.3 Baso % (Auto) 0.3 Lymph # (Auto) 3.2 [place] # (Auto) 1.3 H Eos # (Auto) 0.1 Baso # (Auto) 0.0 Abs Immat Gran (auto) 0.05 H Absolute Neuts (auto) 11.1 H Absolute Nucleated RBC 0.000 Nucleated RBC % (auto) 0.0 Anion Gap 12 Estim Creat Clear Calc 71.7 Estimated GFR > 60 Random Glucose 134 H Lactic Acid Calcium 9.5 Magnesium 2.3 Total Bilirubin 0.7 Direct Bilirubin 0.2 AST 19 ALT 23 Alkaline Phosphatase 86 Total Protein 8.7 H Albumin 4.5 Lipase 15 Urine Color Dark Yellow Urine Appearance Clear Urine pH 6.5 Ur Specific [place] 1.025 Urine Protein 30 (1+) H Urine Glucose (UA) Negative Urine Ketones 15 Urine Blood Large (3+) H Urine Nitrite Negative Ur Leukocyte Esterase Small (1+) H Urine RBC >20 H Urine WBC 0-5 Ur Squamous Epith Cells 0-2 Urine Bacteria Trace Hyaline Casts 0-2 Influenza Type A (PCR) NEGATIVE Influenza Type B (PCR) NEGATIVE RSV RNA Qual (PCR) NEGATIVE SARS-CoV-2 RNA (RT-PCR) NEGATIVE 09/09/24 09/10/24 18:48 04:46 MCV 90.6 MCH 30.6 MCHC 33.8 RDW 13.2 Plt Count 245 MPV 9.1 L Immature Gran % (Auto) 0.2 Neut % (Auto) 63.8 Lymph % (Auto) 26.3 [place] % (Auto) 8.1 Eos % (Auto) 1.1 Baso % (Auto) 0.5 Lymph # (Auto) 2.7 [place] # (Auto) 0.8 Eos # (Auto) 0.1 Baso # (Auto) 0.1 Abs Immat Gran (auto) 0.02 Absolute Neuts (auto) 6.7 Absolute Nucleated RBC 0.000 Nucleated RBC % (auto) 0.0 Anion Gap 12 Estim Creat Clear Calc 80.7 Estimated GFR > 60 Random Glucose 124 H Lactic Acid 1.1 Calcium 8.8 D Magnesium Total Bilirubin Direct Bilirubin AST ALT Alkaline Phosphatase Total Protein Albumin Lipase Urine Color Urine Appearance Urine pH Ur Specific [place] Urine Protein Urine Glucose (UA) Urine Ketones Urine Blood Urine Nitrite Ur Leukocyte Esterase Urine RBC Urine WBC Ur Squamous Epith Cells Urine Bacteria Hyaline Casts Influenza Type A (PCR) Influenza Type B (PCR) RSV RNA Qual (PCR) SARS-CoV-2 RNA (RT-PCR) Procedures Date of Service Date of Service: 09/10/24 Progress Note: A&P Assessment and plan (1) Diverticulitis: Status: Acute Plan Clinically improving with supportive measures. WBC now normalized, afebrile. Abd overall benign with mild LLQ tenderness, no peritoneal signs. Will continue nonoperative measures with IVF, IV zosyn. She denies having urinary symptoms suggestive of colovesical fistula but will obtain urology consult given the air in the bladder. Hopefully she can improve with this acute episode and if there is a fistula, have elective resection. Also due for colonoscopy which will need to be performed prior ideally. Patient comfortable with plan. Time Spent With Patient Time: Total time managing care of this patient today ____ minutes. Quality Stroke Does the patient have a stroke diagnosis?: No VTE Prior VTE?: No VTE Risk Level:: Surgical - low VTE Device Contraindication: N/A - Device Ordered VTE Drug Contraindication: N/A - Med Ordered
[2024-09-10] MEDS: Magnesium Oxide 400 MG TABLET PO (08:31)
[2024-09-10] MEDS: ondansetron HCL 4 MG/2 ML VIAL IVPUSH ×2 (08:33→16:54)
[2024-09-10 08:58] VITALS: BP 180/100; PULSE 59; RESP 20; TEMP 36.7; O2SAT 98
[2024-09-10 11:37] VITALS: BP 143/79; PULSE 62; RESP 16; TEMP 36.7; O2SAT 97
[2024-09-10 14:24] VITALS: BP 182/80; PULSE 81; RESP 20; TEMP 36.7; O2SAT 96
--- NOTE | 2024-09-10 14:25 | MHC.CM.PN ---
pt lives w/ is independent has no servies has a ride [facility] dc plan home n/s
[2024-09-10 20:00] VITALS: BP 179/83; PULSE 74; RESP 20; O2SAT 96
[2024-09-10 20:20] VITALS: BP 169/88; PULSE 69; RESP 14; TEMP 36.8; O2SAT 97
[2024-09-11] VITALS (8 sets, daily range): BP systolic 153–181; BP diastolic 74–90; PULSE 61–76; RESP 16–20; TEMP 36.4–37; O2SAT 96–97; BMI 33.4
--- NOTE | 2024-09-11 | ECG_ITS ---
Test Reason : Palpitations Blood Pressure : */* mmHG Vent. Rate : 64 BPM Atrial Rate : 64 BPM P-R Int : 150 ms QRS Dur : 68 ms QT Int : 426 ms P-R-T Axes : 55 24 23 degrees QTcB Int : 439 ms Normal sinus rhythm Normal ECG When compared with ECG of 20-Sep-2016 07:28, No significant change was found Referred By: Sherlyn Meyer Electronically Signed By: NILESH WHEELER MD
[2024-09-11] MEDS: Piperacillin Sodium/Tazobactam 3.375 GM in 0.9 % Sodium Chloride 50 ML IV ×4 (01:18→18:36)
[2024-09-11] MEDS: 0.9 % Sodium Chloride Flush 3 ML SYRINGE IVFLUSH ×2 (01:21→07:15)
[2024-09-11] MEDS: Acetaminophen 325 MG TABLET 650 MG PO ×2 (01:28→07:19)
[2024-09-11] MEDS: amLODIPine Besylate 5 MG TABLET PO (02:30)
[2024-09-11] MEDS: Lactated Ringers 1,000 ML 100 ML IVCONT ×3 (02:48→19:30)
--- NOTE | 2024-09-11 04:15 | PC.NURSE ---
sleeping comfortably, no distress. no vomiting. continues to await bed assignment.
[2024-09-11] MEDS: ondansetron HCL 4 MG/2 ML VIAL IVPUSH (06:41)
[2024-09-11] MEDS: Pantoprazole Sodium 40 MG/10 ML VIAL IVPUSH (06:41)
[2024-09-11] MEDS: Magnesium Oxide 400 MG TABLET PO (07:17)
--- NOTE | 2024-09-11 07:36 | MHC.EDTECH ---
not allowing me to input vitals vitals are as follows: temp- 97.5 F pulse- 75 respirations- 18 blood pressure- 178/88 oxygen- 96
--- NOTE | 2024-09-11 13:06 | PM.PNGS ---
Subjective Subjective Date of Service: 09/11/24 Interval history: Some improvement in LLQ pain. Tolerating liquids today, had episode of vomiting yesterday. Passing flatus and moving bowels. Physical Exam Vital Signs: Vital Signs: Last Vital Signs Temp 98.6 F 09/11/24 08:56 Pulse 76 09/11/24 08:56 Resp 18 09/11/24 08:56 BP 160/90 H 09/11/24 08:56 Pulse Ox 97 09/11/24 08:56 O2 Del Method Room Air 09/11/24 08:56 BMI result Body Mass Index 33.4 Const: General: comfortable, no acute distress and alert Orientation/consciousness: patient oriented x3 Resp: Effort & Inspection: normal respiratory effort GI: Inspection: No distended Palpation (GI): Soft to palpation, Tenderness to palpation present (GI) in the LLQ (mild ) and no guarding Skin: General skin exam: no rashes or lesions noted Neuro: General: patient oriented x3 and moves all extremities Objective Data Active Medications Acetaminophen (Acetaminophen 325 Mg Tablet) 650 mg PO Q6H PRN PRN Reason: Pain, Mild 1-3,fever,headache Last Admin: 09/11/24 07:19 Dose: 650 mg Documented By: TODD Amlodipine Besylate (Amlodipine Besylate 5 Mg Tablet) 5 mg PO DAILY [facility]; Protocol Last Admin: 09/11/24 02:30 Dose: 5 mg Documented By: RUFUS Calcium Carbonate (Calcium Carbonate 750 Mg Tab.Chew) 750 mg PO Q4H PRN PRN Reason: Heartburn Lactated Ringer's (Lr) 1,000 mls @ 100 mls/hr IVCONT .Q10H [facility] Last Admin: 09/11/24 12:47 Dose: Not Given Documented By: KAREN Non-Admin Reason: previous IV running Piperacillin Sod/Tazobactam (Sod 3.375 gm/ Sodium Chloride) 50 mls @ 100 mls/hr IV Q6H [facility] Last Admin: 09/11/24 12:24 Dose: 100 mls/hr Documented By: KAREN Magnesium Hydroxide (Milk Of Magnesia 30 Ml Oral.Susp) 30 ml PO DAILY PRN PRN Reason: Constipation Magnesium Oxide (Magnesium Oxide 400 Mg Tablet) 400 mg PO DAILY [facility] Last Admin: 09/11/24 07:17 Dose: 400 mg Documented By: TODD Melatonin (Melatonin 3 Mg Tablet) 6 mg PO BEDTIME PRN PRN Reason: Insomnia Last Admin: 09/09/24 20:15 Dose: 6 mg Documented By: NUNUTOCITLALLI Morphine Sulfate (Morphine Sulfate 4 Mg/Ml Cartridge) 3 mg IVPUSH RQ4H PRN; Protocol PRN Reason: Pain, Severe (Pain Scale 7-10) Last Admin: 09/10/24 20:06 Dose: 3 mg Documented By: RUFUS Ondansetron HCl (Ondansetron Hcl 4 Mg/2 Ml Vial) 4 mg IVPUSH Q8H PRN PRN Reason: Nausea and Vomiting Last Admin: 09/11/24 06:41 Dose: 4 mg Documented By: RUFUS Pantoprazole Sodium (Pantoprazole Sodium 40 Mg/10 Ml Vial) 40 mg IVPUSH DAILY@0630 [facility] Last Admin: 09/11/24 06:41 Dose: 40 mg Documented By: URFUS Sodium Chloride (0.9 % Sodium Chloride Flush 3 Ml Syringe) [facility] Last Admin: 09/11/24 07:15 Dose: 3 ml Documented By: TODD Labs 09/10/24 04:46 09/10/24 04:46 Microbiology Microbiology Results: Microbiology 09/09/24 19:09 Blood Culture - Preliminary Blood - Venous No growth after 24 hours. 09/09/24 18:48 Blood Culture - Preliminary Blood - Venous No growth after 24 hours. 09/09/24 Unknown Urine Culture - Final Urine clean catch - Clean Catch Midstream Procedures Date of Service Date of Service: 09/11/24 Progress Note: A&P Assessment and plan (1) Diverticulitis: Status: Acute Plan Continue current plan of IV abx, clear liquids. Urology consult. Further plan dependent on clinical course. Discussed with patient who is comfortable with plan. Time Spent With Patient Time: Total time managing care of this patient today ____ minutes. Quality Stroke Does the patient have a stroke diagnosis?: No VTE Prior VTE?: No VTE Risk Level:: Surgical - low VTE Device Contraindication: N/A - Device Ordered VTE Drug Contraindication: N/A - Med Ordered
--- NOTE | 2024-09-11 14:46 | PM.UROCN ---
History of Present Illness Consult details Consult date: 09/11/24 Narrative: CC: Possible question of colovesical fistula 64-year-old female Known history of diverticulitis Presents with 36 hour history of abdominal pain. CT scan shows inflammatory changes and descending colon and small amount of air and bladder Has not noticed any pneumaturia No history of recurrent UTIs No history of stool passage per urethra Does have prior mesh rectocele repair and prolapsing rectum. Requires manual evacuation of rectum. Discussed potential subclinical and recurrent colovesical fistula formation and healing At this point does not appear to have any acute symptomatology Would recommend outpatient cystoscopy If sigmoid colectomy is performed been general surgery will be able to examine the bladder at time of procedure Also discussed potential for Poppy seed test. 2 tbsp orally with examination of urine. Review of Systems Constitutional: Constitutional: Denies chills and Denies fever(s) Cardiovascular: Cardiovascular: Reports no additional cardiovascular complaints and Denies syncope Respiratory: Respiratory: Denies cough Gastrointestinal: Gastrointestinal: Denies abdominal pain and Denies heartburn Genitourinary: Genitourinary: Reports as per HPI and Denies change in libido Neurologic: Denies syncope Psychiatric: Psychiatric: Denies change in libido Endocrine: Endocrine: Denies change in libido [facility] Past Medical History Medical History (Updated 09/11/24 @ 14:49 by Nathanael Mendes MD) Rectocele Hyperlipidemia GERD (gastroesophageal reflux disease) Endometriosis Surgical History Surgical History History of bilateral breast reduction surgery History of hysterectomy Social History Social History Household Members: Spouse Housing: House Do you presently have visiting nurse or other home services: No Patient Tobacco Use Status: Never used Tobacco Substance Use Type: Marijuana service: No Meds Allergies Allergy/AdvReac Type Severity Reaction Status Date / Time ENVIRONMENTAL Allergy Mild SNEEZING, Uncoded 09/09/24 10:41 RUNNY EYES Active Medications: Current Medications Acetaminophen (Acetaminophen 325 Mg Tablet) 650 mg PO Q6H PRN PRN Reason: Pain, Mild 1-3,fever,headache Last Admin: 09/11/24 07:19 Dose: 650 mg Amlodipine Besylate (Amlodipine Besylate 5 Mg Tablet) 5 mg PO DAILY [facility]; Protocol Last Admin: 09/11/24 02:30 Dose: 5 mg Calcium Carbonate (Calcium Carbonate 750 Mg Tab.Chew) 750 mg PO Q4H PRN PRN Reason: Heartburn Lactated Ringer's (Lr) 1,000 mls @ 100 mls/hr IVCONT .Q10H [facility] Last Admin: 09/11/24 12:47 Dose: Not Given Piperacillin Sod/Tazobactam (Sod 3.375 gm/ Sodium Chloride) 50 mls @ 100 mls/hr IV Q6H [facility] Last Infusion: 09/11/24 12:54 Dose: Infused Magnesium Hydroxide (Milk Of Magnesia 30 Ml Oral.Susp) 30 ml PO DAILY PRN PRN Reason: Constipation Magnesium Oxide (Magnesium Oxide 400 Mg Tablet) 400 mg PO DAILY [facility] Last Admin: 09/11/24 07:17 Dose: 400 mg Melatonin (Melatonin 3 Mg Tablet) 6 mg PO BEDTIME PRN PRN Reason: Insomnia Last Admin: 09/09/24 20:15 Dose: 6 mg Morphine Sulfate (Morphine Sulfate 4 Mg/Ml Cartridge) 3 mg IVPUSH RQ4H PRN; Protocol PRN Reason: Pain, Severe (Pain Scale 7-10) Last Admin: 09/10/24 20:06 Dose: 3 mg Ondansetron HCl (Ondansetron Hcl 4 Mg/2 Ml Vial) 4 mg IVPUSH Q8H PRN PRN Reason: Nausea and Vomiting Last Admin: 09/11/24 06:41 Dose: 4 mg Pantoprazole Sodium (Pantoprazole Sodium 40 Mg/10 Ml Vial) 40 mg IVPUSH DAILY@0630 [facility] Last Admin: 09/11/24 06:41 Dose: 40 mg Sodium Chloride (0.9 % Sodium Chloride Flush 3 Ml Syringe) 3 ml IVFLUSH QSHIFT [facility] Last Admin: 09/11/24 07:15 Dose: 3 ml Home Medications ?Medication ?Instructions ?Recorded ?Confirmed ?Last Taken ?Type pantoprazole 40 mg tablet,delayed 40 mg PO BEDTIME 01/12/22 09/09/24 09/08/24 History release simvastatin 40 mg tablet 40 mg PO BEDTIME 01/12/22 09/09/24 09/08/24 History ascorbic acid (vitamin C) 500 mg 500 mg PO DAILY 09/09/24 09/09/24 09/08/24 History tablet (Vitamin C) cetirizine 10 mg tablet (Zyrtec) 10 mg PO DAILY 09/09/24 09/09/24 09/08/24 History docusate sodium 100 mg tablet 100 mg PO BEDTIME 09/09/24 09/09/24 09/08/24 History magnesium oxide 400 mg PO DAILY 09/09/24 09/09/24 09/08/24 History multivitamin 1 tab PO DAILY 09/09/24 09/09/24 09/08/24 History Physical Exam Vital Signs: Vital Signs: Last Vital Signs Temp 98.6 F 09/11/24 08:56 Pulse 76 09/11/24 08:56 Resp 18 09/11/24 08:56 BP 160/90 H 09/11/24 08:56 Pulse Ox 97 09/11/24 08:56 O2 Del Method Room Air 09/11/24 08:56 BMI result Body Mass Index 33.4 Const: General: cooperative, healthy appearing, comfortable and no acute distress Orientation/consciousness: patient oriented x3 HEENT: Face and sinus: Yes normal facial exam Mouth: moist mucous membranes Neck: Neck: Yes normal visual inspection, Yes full ROM and Yes trachea midline Chest: Chest palpation & inspection: normal inspection of the chest Resp: Effort & Inspection: normal respiratory effort, able to speak in complete sentences and no respiratory distress GI: Inspection: Yes normal to inspection Back/Spine/Pelvis: Cervical Spine: normal cervical lordosis Thoracic/Lumbar Spine: thoracic and lumbar spine normal to inspection Skin: General skin exam: no rashes or lesions noted Neuro: General: patient oriented x3, gait normal, tone normal and moves all extremities Extrem: General: Yes normal to inspection and Yes capillary refill normal Results Labs 09/10/24 04:46 09/10/24 04:46 Labs: Urine 09/09/24 Range/Units 11:41 Urine Color Dark Yellow Urine Appearance Clear Urine pH 6.5 (5.0-9.0) Ur Specific [place] 1.025 (1.005-1.025) Urine Protein 30 (1+) H (Neg-Trace) mg/dL Urine Glucose (UA) Negative (Negative) mg/dL All other labs normal. Assessment and Plan (1) Colovesical fistula: Status: Acute Plan Outpatient cystoscopy Procedures Date of Service Date of Service: 09/11/24
--- NOTE | 2024-09-11 16:43 | P.CONHOSP_ITS ---
History of Present Illness Data of Consult Service Date: 09/11/24 Primary Care Provider: Rene Collier MD [facility] Reason for consult: Palpitations Pt is a 64-year-old female with a PMH significant for endometriosis s/p hysterectomy bilateral oophorectomy, rectocele s/p repair 20+ years ago, diverticulitis, HLD, and GERD who was admitted to the hospital under general surgery services for acute diverticulitis with question of colovesical fistula. Medical consult for palpitations. Pt reports she has been experiencing intermittent palpitations for many months now. Has been in her to her PCP would so far has had no workup done. Reports has had multiple episodes of feeling like her heart is fluttering while here in the hospital. Episodes usually last a few seconds long. Denies chest pain or pressure. No diaphoresis. Pt also complains of headaches that normally accompany palpitations. Denies significant shortness a breath or fatigue. No lightheadedness or dizziness. Overall GI symptoms are feeling better and has had small bowel movement earlier today. Some nausea but no vomiting. Mild abdominal pain. Review of Systems 2 Review of Systems: Negative except for that which is stated in the HPI COUNT INCLUDES THE [facility] Medical History Rectocele Hyperlipidemia GERD (gastroesophageal reflux disease) Endometriosis Surgical History History of bilateral breast reduction surgery History of hysterectomy Social History Household Members: Spouse Housing: House Do you presently have visiting nurse or other home services: No Patient Tobacco Use Status: Never used Tobacco Substance Use Type: Marijuana service: No Meds Allergies Allergy/AdvReac Type Severity Reaction Status Date / Time ENVIRONMENTAL Allergy Mild SNEEZING, Uncoded 09/09/24 10:41 RUNNY EYES Active Medications: Current Medications Acetaminophen (Acetaminophen 325 Mg Tablet) 650 mg PO Q6H PRN PRN Reason: Pain, Mild 1-3,fever,headache Last Admin: 09/11/24 07:19 Dose: 650 mg Amlodipine Besylate (Amlodipine Besylate 5 Mg Tablet) 5 mg PO DAILY [facility]; Protocol Last Admin: 09/11/24 02:30 Dose: 5 mg Calcium Carbonate (Calcium Carbonate 750 Mg Tab.Chew) 750 mg PO Q4H PRN PRN Reason: Heartburn Lactated Ringer's (Lr) 1,000 mls @ 100 mls/hr IVCONT .Q10H [facility] Last Admin: 09/11/24 12:47 Dose: Not Given Piperacillin Sod/Tazobactam (Sod 3.375 gm/ Sodium Chloride) 50 mls @ 100 mls/hr IV Q6H [facility] Last Infusion: 09/11/24 12:54 Dose: Infused Magnesium Hydroxide (Milk Of Magnesia 30 Ml Oral.Susp) 30 ml PO DAILY PRN PRN Reason: Constipation Magnesium Oxide (Magnesium Oxide 400 Mg Tablet) 400 mg PO DAILY [facility] Last Admin: 09/11/24 07:17 Dose: 400 mg Melatonin (Melatonin 3 Mg Tablet) 6 mg PO BEDTIME PRN PRN Reason: Insomnia Last Admin: 09/09/24 20:15 Dose: 6 mg Morphine Sulfate (Morphine Sulfate 4 Mg/Ml Cartridge) 3 mg IVPUSH RQ4H PRN; Protocol PRN Reason: Pain, Severe (Pain Scale 7-10) Last Admin: 09/10/24 20:06 Dose: 3 mg Ondansetron HCl (Ondansetron Hcl 4 Mg/2 Ml Vial) 4 mg IVPUSH Q8H PRN PRN Reason: Nausea and Vomiting Last Admin: 09/11/24 06:41 Dose: 4 mg Pantoprazole Sodium (Pantoprazole Sodium 40 Mg/10 Ml Vial) 40 mg IVPUSH DAILY@0630 [facility] Last Admin: 09/11/24 06:41 Dose: 40 mg Sodium Chloride (0.9 % Sodium Chloride Flush 3 Ml Syringe) 3 ml IVFLUSH QSHIFT [facility] Last Admin: 09/11/24 14:54 Dose: Not Given Home Medications ?Medication ?Instructions ?Recorded ?Confirmed ?Last Taken ?Type pantoprazole 40 mg tablet,delayed 40 mg PO BEDTIME 01/12/22 09/09/24 09/08/24 History release simvastatin 40 mg tablet 40 mg PO BEDTIME 01/12/22 09/09/24 09/08/24 History ascorbic acid (vitamin C) 500 mg 500 mg PO DAILY 09/09/24 09/09/24 09/08/24 History tablet (Vitamin C) cetirizine 10 mg tablet (Zyrtec) 10 mg PO DAILY 09/09/24 09/09/24 09/08/24 History docusate sodium 100 mg tablet 100 mg PO BEDTIME 09/09/24 09/09/24 09/08/24 History magnesium oxide 400 mg PO DAILY 09/09/24 09/09/24 09/08/24 History multivitamin 1 tab PO DAILY 09/09/24 09/09/24 09/08/24 History Physical Exam 2 Vital Signs and Narrative: Vital Signs: Last Vital Signs Temp 98 F 09/11/24 15:59 Pulse 61 09/11/24 15:59 Resp 17 09/11/24 15:59 BP 170/90 H 09/11/24 16:10 Pulse Ox 97 09/11/24 15:59 O2 Del Method Room Air 09/11/24 15:59 BMI result Body Mass Index 33.4 General: AOx3, no acute distress Resp: CTA bilaterally CVS: S1, S2, RRR GI: +BS, no distention, LLQ tenderness Skin: Warm, dry Neuro: Cranial nerves II-XII grossly intact bilaterally. Motor grossly intact bilaterally Extremities: No edema Psych: Appropriate affect Results Labs 09/10/24 04:46 09/10/24 04:46 Assessment and Plan (1) Palpitations: Status: Acute Plan Pt is a 64-year-old female with a PMH significant for endometriosis s/p hysterectomy bilateral oophorectomy, rectocele s/p repair 20+ years ago, diverticulitis, HLD, and GERD who was admitted to the hospital under general surgery services for acute diverticulitis with question of colovesical fistula. Medical consult for palpitations. Diverticulitis Plan as per general surgery Palpitations Reports multiple episodes of brief palpitations while in the ED Has been experiencing palpitations for many months now though no outpatient workup yet Pt in normal sinus rhythm during physical exam Will get EKG Will place on continuous cardiac monitoring Pt without chest pain or pressure, little concern for CAD/NH, will hold on troponin HTN BP has been elevated while in the hospital Not on home antihypertensives Will place on amlodipine 5 mg p.o. for now Follow BP HLD Continue statin GERD Continue PPI Thank you for allowing us to participate in the care of this pt. We will continue to follow along with you.
[2024-09-11 17:23] LABS: Anion Gap 13 (12-20); Blood Urea Nitrogen 7 mg/dL (9-16); Calcium 9.5 mg/dL (8.4-10.2); Carbon Dioxide 26 mmol/L (22-29); Chloride 106 mmol/L (96-108); Creatinine Clr Calc Pharmacy 74.8; Estimated Glomerular Filt Rate > 60; Glucose Random 106 mg/dL (60-115); Magnesium 2.2 mg/dL (1.6-2.6); Potassium 3.6 mmol/L (3.3-5.1); Sodium 141 mmol/L (135-145)
[2024-09-11] MEDS: Butalb/Acetamin/Caff 50/325/40 TABLET 1 TAB PO (17:27)
[2024-09-11] MEDS: LORazepam 0.5 MG TABLET PO (22:12)
[2024-09-12] MEDS: Piperacillin Sodium/Tazobactam 3.375 GM in 0.9 % Sodium Chloride 50 ML IV ×2 (01:13→06:09)
[2024-09-12 03:56] VITALS: BP 144/84; PULSE 65; RESP 18; TEMP 36.8; O2SAT 94
[2024-09-12] MEDS: Lactated Ringers 1,000 ML 100 ML IVCONT (05:23)
[2024-09-12] MEDS: Pantoprazole Sodium 40 MG/10 ML VIAL IVPUSH (06:09)
--- NOTE | 2024-09-12 07:45 | PM.PNGS ---
Subjective Subjective Date of Service: 09/12/24 Interval history: C/o palpitations last night and elevated SBP. Improved this morning. Reports pain is minimal, continues to move her bowels. Tolerating clear liquids without further nausea. Physical Exam Vital Signs: Vital Signs: Last Vital Signs Temp 98.3 F 09/12/24 03:56 Pulse 65 09/12/24 03:56 Resp 18 09/12/24 03:56 BP 144/84 H 09/12/24 03:56 Pulse Ox 94 09/12/24 03:56 O2 Del Method Room Air 09/12/24 03:56 BMI result Body Mass Index 33.4 Const: General: comfortable, no acute distress and alert Orientation/consciousness: patient oriented x3 Resp: Effort & Inspection: normal respiratory effort GI: Inspection: No distended Palpation (GI): Soft to palpation, Tenderness to palpation present (GI) (very minimal LLQ) and no guarding Skin: General skin exam: no rashes or lesions noted Neuro: General: patient oriented x3 and moves all extremities Objective Data Active Medications Acetaminophen (Acetaminophen 325 Mg Tablet) 650 mg PO Q6H PRN PRN Reason: Pain, Mild 1-3,fever,headache Last Admin: 09/11/24 07:19 Dose: 650 mg Documented By: TODD Acetaminophen/Butalbital/Caffeine (Butalb/Acetamin/Caff 50/325/40 Tablet) 1 tab PO Q4H PRN PRN Reason: Migraine Headache Last Admin: 09/11/24 17:27 Dose: 1 tab Documented By: KAREN Amlodipine Besylate (Amlodipine Besylate 5 Mg Tablet) 5 mg PO DAILY REPLACED BY [facility]; Protocol Last Admin: 09/11/24 02:30 Dose: 5 mg Documented By: JOHNNY-BOB Calcium Carbonate (Calcium Carbonate 750 Mg Tab.Chew) 750 mg PO Q4H PRN PRN Reason: Heartburn Piperacillin Sod/Tazobactam (Sod 3.375 gm/ Sodium Chloride) 50 mls @ 100 mls/hr IV Q6H REPLACED BY [facility] Last Infusion: 09/12/24 06:48 Dose: Infused Documented By: MITALI Lorazepam (Lorazepam 0.5 Mg Tablet) 0.5 mg PO BEDTIME PRN PRN Reason: Insomnia Last Admin: 09/11/24 22:12 Dose: 0.5 mg Documented By: MITALI Magnesium Hydroxide (Milk Of Magnesia 30 Ml Oral.Susp) 30 ml PO DAILY PRN PRN Reason: Constipation Magnesium Oxide (Magnesium Oxide 400 Mg Tablet) 400 mg PO DAILY [facility]PLACED BY [facility] Last Admin: 09/11/24 07:17 Dose: 400 mg Documented By: TODD Melatonin (Melatonin 3 Mg Tablet) 6 mg PO BEDTIME PRN PRN Reason: Insomnia Last Admin: 09/09/24 20:15 Dose: 6 mg Documented By: NUNUTOCITLALLI Morphine Sulfate (Morphine Sulfate 4 Mg/Ml Cartridge) 3 mg IVPUSH RQ4H PRN; Protocol PRN Reason: Pain, Severe (Pain Scale 7-10) Last Admin: 09/10/24 20:06 Dose: 3 mg Documented By: RUFUS Ondansetron HCl (Ondansetron Hcl 4 Mg/2 Ml Vial) 4 mg IVPUSH Q8H PRN PRN Reason: Nausea and Vomiting Last Admin: 09/11/24 06:41 Dose: 4 mg Documented By: RUFUS Pantoprazole Sodium (Pantoprazole Sodium 40 Mg/10 Ml Vial) 40 mg IVPUSH DAILY@0630 REPLACED BY [facility] Last Admin: 09/12/24 06:09 Dose: 40 mg Documented By: MITALI Sodium Chloride (0.9 % Sodium Chloride Flush 3 Ml Syringe) 3 ml IVFLUSH QSHIFT REPLACED BY [facility] Last Admin: 09/12/24 07:09 Dose: Not Given Documented By: KAREN Non-Admin Reason: IV Running Labs 09/10/24 04:46 09/11/24 17:01 Labs: Laboratory Results - last 24 hr 09/11/24 17:01 Anion Gap 13 Estim Creat Clear Calc 74.8 Estimated GFR > 60 Random Glucose 106 Calcium 9.5 D Magnesium 2.2 Microbiology Microbiology Results: Microbiology 09/09/24 19:09 Blood Culture - Preliminary Blood - Venous No growth after 48 hours. 09/09/24 18:48 Blood Culture - Preliminary Blood - Venous No growth after 48 hours. Procedures Date of Service Date of Service: 09/12/24 Progress Note: A&P Assessment and plan (1) Diverticulitis: Status: Acute Plan Improved with supportive measures. Will advance to solid diet. If tolerating home later today on oral antibiotics, f/u in office in 1 week, f/u urology. Dc IVF. Time Spent With Patient Time: Total time managing care of this patient today ____ minutes. Quality Stroke Does the patient have a stroke diagnosis?: No VTE Prior VTE?: No VTE Risk Level:: Surgical - low VTE Device Contraindication: N/A - Device Ordered VTE Drug Contraindication: N/A - Med Ordered
[2024-09-12 07:52] VITALS: BP 171/84; PULSE 66; RESP 18; TEMP 36.7; O2SAT 95
[2024-09-12 09:07] VITALS: BP 171/84
[2024-09-12] MEDS: amLODIPine Besylate 5 MG TABLET PO (09:07)
[2024-09-12] MEDS: Magnesium Oxide 400 MG TABLET PO (09:07)
--- NOTE | 2024-09-12 13:31 | PM.DS ---
DS: Providers Provider Date of Service: 09/12/24 Date of admission: 09/09/24 19:53 Date of discharge: 09/12/24 Primary care physician: Rene Collier MD Attending physician on admission: Viktoria Steinberg Consults: 09/10/24 08:04 Consult to Urology Routine Consulting Provider: [facility] Urology Services Reason for consultation: acute diverticulitis, air in bladder, ?colovesical fistula 09/11/24 16:14 Consult to Hospitalist Stat Comment: Consulting Provider: [facility] Hospitalists Reason For Exam: Heart Palpitations Attending physician on discharge: Waldo Roberts DS: Diagnosis Discharge Diagnosis (1) Diverticulitis: Status: Acute DS: Summary Hospital Course Hospital Course: HPI AT ADMISSION: Jenny Mae is a 64 year old female With a known history of diverticulitis in the past who comes in with a bad a 36 hour history of abdominal pain not feeling well consistent with diverticulitis. Here on workup CT scan of the abdomen and pelvis reveals inflammatory changes in the descending colon but also a little bit of air in her bladder. She has not had any Haas's or any instrumentation of her bladder. She has had multiple episodes of diverticulitis in the past. She has also had i significant issues in her youth with endometriosis in his had multiple operations for this. She eventually underwent a hysterectomy and bilateral oophorectomy. Eventually she had issues with a significant rectocele and had an surgical repair of this at [facility] about 25 years ago. This was complicated by some bleeding and other issues which eventually required her to have revision and removal of the mesh for the rectocele repair. As a result the rectocele issue recurred and she did see Dr. George here several years ago who suggested that she be seen in [place] for consideration for revision. At this time she still has to manually evacuate the rectum by putting her fingers in her vagina and pushing back to get the stool out. She goes a little bit multiple times in the morning in order to really try to evacuate as much as possible. She denies any urinary symptoms she denies urinating any stool or air. In addition she also had a Nelly fundoplication in the past, she had a lot of bad heartburn reflux disease. She says this is much improved. CT scan of her abdomen and pelvis does show however significant hiatal hernia with some moderate stomach in the chest. On a day-to-day basis she says this does not bother her though. HOSPITAL COURSE: She was admitted to the surgical service for further treatment of the acute diverticulitis with concern for possible colovesical fistula given the air in the bladder. She had some improvement in her pain and therefore nonoperative measures were continued with IV zosyn, IVF, and bowel rest. Urology was consulted for the possible colovesical fistula and given at this point she did not appear to have any acute symptomatology outpatient cystoscopy recommend. Her WBC count normalized. Her abdominal pain and tenderness gradually improved with conservative measures. Her diet was slowly advanced to clear liquids and then solids. She developed palpitations and had persistently elevated SBP ranging from 160s-180s with adequate pain control. Electrolytes remained WNL. Hospitalist consult was obtained. EKG was performed which was normal. She was initiated on Norvasc 5mg PO daily with further titration and follow up by her PCP. On the day of discharge, she was tolerating a solid diet without nausea, vomiting or abd pain. She was ambulating without difficulty. She had good GI function. She was hemodynamically stable with a benign abd exam. She felt ready for discharge. She was discharged to home on 09/12/24 in stable condition. She is to follow up with Dr. Roberts in the office. She is also due for a repeat colonoscopy and this should be performed prior to any planned colon resection. She is to follow up with Dr. Mendes upon discharge. She is to follow up with her PCP regarding further HTN management. Status at Discharge Functional status at discharge: independent ambulation Overall status at discharge: patient is progressing back to baseline Time Attestation Discharge Coordination Time (in mins): 35 Quality: Safe Use of Opioids Does Pt have an Active Cancer Diagnosis on the Problem List?: No Quality: Stroke Does the patient have a stroke diagnosis?: No Physical Exam Vital Signs: Vital Signs: Last Vital Signs Temp 97.7 F 09/12/24 15:04 Pulse 76 09/12/24 15:04 Resp 18 09/12/24 15:04 BP 177/87 H 09/12/24 15:04 Pulse Ox 95 09/12/24 15:04 O2 Del Method Room Air 09/12/24 15:04 BMI result Body Mass Index 33.4 Const: General: comfortable, no acute distress and alert Orientation/consciousness: patient oriented x3 Resp: Effort & Inspection: normal respiratory effort GI: Inspection: No distended Palpation (GI): Soft to palpation, nontender and no guarding Skin: General skin exam: no rashes or lesions noted Neuro: General: patient oriented x3 and moves all extremities Discharge Plan Discharge Anticipated Discharge Date/Time: 09/12/24 14:38 Patient Disposition: Home, Self-Care Discharge Diagnosis: acute diverticulitis, HTN Referrals: Nathanael Mendes MD [Physician] - 2 Weeks Rene Collier MD [Primary Care Provider] - 1 Week Waldo Roberts MD [Physician] - 1 Week Discharge Medications: New amlodipine 5 mg Tablet 5 mg PO DAILY Qty: 30 0RF Protocol: Hold for SBP< HOLD for SBP < : 90 amoxicillin-pot clavulanate 875-125 mg tablet 1 tab PO BID Qty: 20 0RF Continued multivitamin Tablet 1 tab PO DAILY cetirizine [Zyrtec] 10 mg Tablet 10 mg PO DAILY ascorbic acid (vitamin C) [Vitamin C] 500 mg Tablet 500 mg PO DAILY docusate sodium 100 mg Tablet 100 mg PO BEDTIME magnesium oxide 400 mg magnesium Tablet 400 mg PO DAILY pantoprazole 40 mg tablet,delayed release (DR/EC) 40 mg PO BEDTIME simvastatin 40 mg tablet 40 mg PO BEDTIME Discharge Orders: Discharge Order (Routine); Ordered 09/12/24 Ordered By: Marva Ford Diet: Advance to usual diet Activity on Discharge: No heavy lifting Stand Alone Forms: Patient Portal Discharge page Print Language: Armenian Activity Restrictions/Additional Instructions: Follow up in office in a week with Dr. Roberts. ([phone]) F/u with your PCP regarding HTN. Call Your Doctor If: ? ? -Your temperature exceeds 101.5? F? ? ? -You experience excessive pain or swelling ? ? -You have an unexpected reaction to medication ? ? -You experience continued vomiting/nausea Care Plan Goals: Return to baseline health and resume normal activities following recovery period. Health Concerns: acute diverticulitis HTN Plan of Treatment: supportive with IV abx transitioned to PO abx f/u in office Norvasc 5mg PO daily Assessment: Improved Discharge Date/Time: 09/12/24 16:20
[2024-09-12 15:04] VITALS: BP 177/87; PULSE 76; RESP 18; TEMP 36.5; O2SAT 95
== END 2024-09-12 16:20 | disposition home or self-care (01) | DRG 392 ==
LOC: HO.ED 19:31 → HO.EDOVER 20:03 → HO.S3 09-11 07:26
PROVIDERS: Nurse Practitioner Family; Physician Assistant; Physician Assistant Surgical; Admitting Provider Surgery; Emergency Provider Emergency Medicine Emergency Medical Services; PCP Family Medicine; Visit Provider Surgery
DX: K57.32 Diverticulitis of large intestine without perforation or abscess without bleeding (principal); N32.1 Vesicointestinal fistula; I10 Essential (primary) hypertension; Z20.822 Contact with and (suspected) exposure to COVID-19; Z79.899 Other long term (current) drug therapy
CPT/HCPCS: 0241U; 36415; 74176; 80048; 80076; 81001; 83605; 83690; 83735; 85025; 87040; 87086; 93005; 99285; J2270; J2405; J2470; J2543; J7120

== ENCOUNTER → 2024-09-09 14:37 | Outpatient (BNV) | payer OTHER, SELFPAY | PROVIDERS: PCP Family Medicine; Visit Provider Radiology Diagnostic Radiology | DX: K57.32 Diverticulitis of large intestine without perforation or abscess without bleeding (principal); K76.0 Fatty (change of) liver, not elsewhere classified; K80.00 Calculus of gallbladder with acute cholecystitis without obstruction | CPT/HCPCS: 74176 ==

== ENCOUNTER 2024-09-09 19:53 | Outpatient (BNV) | payer OTHER, SELFPAY | END 2024-09-11 16:37 | PROVIDERS: Admitting Provider Surgery; Emergency Provider Emergency Medicine Emergency Medical Services; PCP Family Medicine; Visit Provider Internal Medicine Cardiovascular Disease | DX: R00.2 Palpitations (principal) | CPT/HCPCS: 93010 ==

== ENCOUNTER → 2024-09-09 19:53 | Outpatient (BNV) | payer OTHER, SELFPAY | PROVIDERS: Admitting Provider Surgery; Emergency Provider Emergency Medicine Emergency Medical Services; PCP Family Medicine; Visit Provider Urology | DX: N32.1 Vesicointestinal fistula (principal) | CPT/HCPCS: 99222 ==

== ENCOUNTER → 2024-09-09 19:53 | Outpatient (BNV) | payer OTHER, SELFPAY | PROVIDERS: Admitting Provider Surgery; Emergency Provider Emergency Medicine Emergency Medical Services; PCP Family Medicine; Visit Provider Surgery | DX: K57.92 Diverticulitis of intestine, part unspecified, without perforation or abscess without bleeding (principal) | CPT/HCPCS: 99223; 99232 ==

== ENCOUNTER → 2024-09-09 19:53 | Outpatient (BNV) | payer OTHER, SELFPAY | PROVIDERS: Admitting Provider Surgery; Emergency Provider Emergency Medicine Emergency Medical Services; PCP Family Medicine; Visit Provider Student in an Organized Health Care Education/Training Program | DX: R00.2 Palpitations (principal) | CPT/HCPCS: 99222 ==

== ENCOUNTER 2024-09-22 10:01 | Outpatient (AMB) | payer OTHER, SELFPAY ==
--- NOTE | 2024-09-22 10:03 | A.OFFVIS_ITS ---
Vital Signs 09/22/24 10:11 Height 5 ft 8 in Weight 170 lb BMI 25.8 BP 177/95 H Blood Pressure Location Rt brachial Position Sitting Pulse 83 Intake Visit Reasons: Abdominal pain/diverticulitis? Intake Note: Patient referred after ED visit for abdominal pain on 09-09-2024. Patient c/o: discomfort mid lower abdomen. Waiting to schedule with [facility]. ABD/ pelvis CT: 09-13-2024 Crepe Box Tender Required: No Crepe Box Tender Services: Crepe Box Tender Present Accompanied by: Self / Same As Patient Allergies ENVIRONMENTAL Allergy (Mild, Uncoded 09/22/24 10:08) SNEEZING, RUNNY EYES HPI Comments Details: Patient presents status post recent hospitalization for sigmoid diverticulitis. There was a concern of a possible colovesicular fistula. She has completed her antibiotic course. Patient has resolution of her abdominal symptoms. She is tolerating a diet. Having regular bowel habits. She has no abdominal issues or complaints. COUNTS INCLUDE 234 BEDS AT THE [facility] Medical History Rectocele Hyperlipidemia GERD (gastroesophageal reflux disease) Endometriosis Surgical History History of bilateral breast reduction surgery History of hysterectomy Social History Household Members: Spouse Housing: House Do you presently have visiting nurse or other home services: No Patient Tobacco Use Status: Never used Tobacco Substance Use Type: Marijuana service: No Physical Exam Vital Signs: Last Vital Signs Pulse 83 09/22/24 10:11 BP 177/95 H 09/22/24 10:11 BMI result Body Mass Index 25.8 GI Other: Abdomen is corpulent, soft, benign. Assessment & Plan Assessment & Plan (1) History of diverticulitis of colon: Code(s): Z87.19 - Personal history of other diseases of the digestive system Category: Surgical Plan Patient would like to have her diverticular disease address surgically but to have this at the [facility]. She apparently was scheduled few years ago to see mesh on regarding a rectocele issue but was never contacted by them. She would like to once again O2 by sterile regarding her diverticular issue. She has asked medical records to provide all her notes to [facility]. She can contacting other her GI doctor who was at [facility] for formal referral. She will otherwise follow-up with me p.r.n.. All questions answered Coding Level of Care Code Est Pt Level 4 (98345) Diagnoses History of diverticulitis of colon Z87.19
[2024-09-22 10:11] VITALS: BP 177/95; PULSE 83; BMI 25.8
--- OUTSIDE RECORDS SUMMARY | 2024-09-22 10:39 | XMS_ITS | Encounter Summary ---
Author Organization [facility] Address [address] [place] [address] Care Team Providers Care Music Store Manager Name Role Phone Rene Collier MD Primary Care Provider [phone] Encounter Details Date Type Department Care Team (Late st Contact Info) Description 09/16/2024 Telephone Gastroenterology - [address] [facility] [address] [place] [phone] Vahe White MD [address] [place] [address] Social History Tobacco Use Types Packs/Day Years Used Date Smoking Tobacco: Never Assessed Sex and Gender Information Value Date Recorded Sex Assigned at Not on file Gender Identity Not on file Sexual Orientation Not on file Job Start Date Occupation Industry Not on file Not on file Not on file documented as of this encounter Progress Notes * Vahe White MD - 09/16/2024 12:21 PM EST Patient was in the [facility] for about a week. She apparently had imaging which showed air in her bladder and then was found to have diverticulitis. The colorectal surgeon at [facility] basicallyfelt she needed to go to [place] for her surgery. She called me asking about colonoscopy. She did have a colonoscopy in December 2021. From my perspective I certainly would do a colonoscopy on her but I would like to review her records at assuming she was just in with diverticulitis I would like to wait at least 6 weeks to let things settle down In the interim I did advise her to proceed with her [facility] referral. I did share that is very possible the doctors in [place] are going to want to do the colonoscopy themselves and what ever she wantsis fine with me. I am hoping she can get me a copy of her records so I can review them * Brenda Too - 09/16/2024 9:28 AM EST PT RECENTLY RELEASED FROM [facility], NEEDS SURGERY AND IS LOOKING FOR ADVICE documented in this encounter Plan of Treatment Upcoming Encounters Date Type Department Care Team (Late st Contact Info) Description 10/24/2024 11:20 AM EST Office Visit Gastroenterology - [address] [phone] Vahe White MD [address] [facility] [address] [address] documented as of this encounter Visit Diagnoses Not on filedocumented in this encounter Care Teams Music Store Manager Relationship Specialty Start Date End Date Rene Collier MD [address] [place] [address] [address] [place] [address] PCP - General Internal Medicine 09/12/24 documented as of this encounter
--- OUTSIDE RECORDS SUMMARY | 2024-09-22 10:40 | XMS_ITS | Clinical Summary ---
Author Organization [facility] 299 [facility] Address [address] [place] [address] Phone Care Team Providers Care Structural Mill Supervisor Name Role Phone Rene Collier MD Primary Care Provider [phone] Encounters Date Type Department Care Team Description 09/16/2024 Telephone Gastroenterology - [address] [phone] Vahe White MD from Last 3 Months Social History Tobacco Use Types Packs/Day Years Used Date Smoking Tobacco: Never Assessed Sex and Gender Information Value Date Recorded Sex Assigned at Not on file Gender Identity Not on file Sexual Orientation Not on file Job Start Date Occupation Industry Not on file Not on file Not on file Plan of Treatment Upcoming Encounters Date Type Department Care Team (Late st Contact Info) Description 10/24/2024 11:20 AM EST Office Visit Gastroenterology - [address] [phone] Vahe White MD [address] [place] [address] Health Maintenance Due Date Last Done Comments Breast Cancer Screening 1959 DTaP,Tdap,and Td Vaccines (1 - Tdap) 1978 Cervical Cancer Screening: P ap Smear 1980 Zoster Vaccines (1 of 2) 2009 Colorectal Cancer Screening: Colonoscopy 07/22/2022 Depression Screening 07/22/2022 Hepatitis C Screening 07/22/2022 Osteoporosis Screening (Bone Density Screening) 07/22/2022 Social Influencers of Health Screening 07/22/2022 COVID-19 Vaccine (1 - 2023-2 5 season) 2024 Influenza Vaccine (#1) 2024 Falls Risk Assessment 2024 Pneumococcal Vaccine: 65+ Ye ars (1 of 1 - PCV) 2024 RSV Immunization Patients 60 + Years Old (1 - 1-dose 75+ series) 2034 HIB Vaccines Aged Out No longer eligi ble based on patient's age to complete this topic HPV Vaccines Aged Out No longer eligi ble based on patient's age to complete this topic Hepatitis A Vaccines Aged Out No long er eligible based on patient's age to complete this topic Hepatitis B Vaccines Aged Out No long er eligible based on patient's age to complete this topic IPV Vaccines Aged Out No longer eligi ble based on patient's age to complete this topic MMR Vaccines Aged Out No longer eligi ble based on patient's age to complete this topic Meningococcal ACWY Vaccine Aged Out N o longer eligible based on patient's age to complete this topic Pneumococcal Vaccine: Pediat rics (0 to 5 Years) and At-Risk Patients (6 to 64 Years) Aged Out No longer eligible b ased on patient's age to complete this topic RSV Immunization Patients Un xavi 20 months Aged Out No longer eligible b ased on patient's age to complete this topic Varicella Vaccines Aged Out No longer eligible based on patient's age to complete this topic Care Teams Structural Mill Supervisor Relationship Specialty Start Date End Date Rene Collier MD [address] [place] [address] [place] [phone] PCP - General Internal Medicine 09/12/24
== END 2024-09-22 10:19 | disposition home or self-care (01) ==
PROVIDERS: PCP Family Medicine; Visit Provider Surgery
DX: Z87.19 Personal history of other diseases of the digestive system (principal)
CPT/HCPCS: 99214

== ENCOUNTER → 2024-09-22 10:01 | Outpatient (BNVA) | payer OTHER, SELFPAY | PROVIDERS: PCP Family Medicine; Visit Provider Surgery ==

== ENCOUNTER 2024-10-31 07:51 | Outpatient (REF) | payer OTHER, SELFPAY ==
--- OUTSIDE RECORDS SUMMARY | 2024-10-31 07:56 | XMS_ITS | Encounter Summary ---
Author Organization [facility] Address [address] [place] [address] Care Team Providers Care Sales Performance Manager Name Role Phone Rene Collier MD Primary Care Provider [phone] Encounter Details Date Type Department Care Team ([facility] st Contact Info) Description 10/24/2024 Telephone Gastroenterology - [address] [facility] [address] [place] [phone] Vahe White MD [address] [facility] [address] [place] [address] Social History Tobacco Use Types Packs/Day Years Used Date Smoking Tobacco: Never Alcohol Use Standard Drinks/Week Comments Not Currently 0 (1 standard drink = 0.6 oz pur e alcohol) Comments Unknown Sex and Gender Information Value Date Recorded Sex Assigned at Not on file Legal Sex Female 9:07 PM EST Gender Identity Not on file Sexual Orientation Not on file documented as of this encounter Ordered Prescriptions Prescription Sig Dispense Quantity Refills Last Filled Start Date End Date sod sulf-pot chloride-mag sulf (Sutab) 1.479-0.188- 0.225 gram tabletIndications:D iverticulitis Take 12 each by mouth 2 (two) times a day. 24 tablet 10/24/2024 documented in this encounter Progress Notes * [place] Child - 10/24/2024 11:29 AM EST PT ASKING FOR SUPREP INSTEAD OF THE GALLON PREP. NEW INSTRUCTIONS GIVEN TO PT, PLEASE SIGN AND SENDPREP. documented in this encounter Plan of Treatment Upcoming Encounters Date Type Department Care Team (Late st Contact Info) Description 11/13/2024 3:00 PM EDT Hospital Encounter [facility] Endoscopy [address] [place] [phone] Vahe White MD [address] [address] documented as of this encounter Visit Diagnoses Diagnosis Diverticulitis- Primary Diverticulitis of colon (without mention of hemorrhage) documented in this encounter Care Teams Sales Performance Manager Relationship Specialty Start Date End Date Rene Collier MD [address] [place] [address] [address] [place] [address] PCP - General Internal Medicine 09/12/24 documented as of this encounter
--- OUTSIDE RECORDS SUMMARY | 2024-10-31 07:56 | XMS_ITS | Clinical Summary ---
Author Organization [facility] 299 [facility] Address [address] [place] [phone] Phone Care Team Providers Care Roller Stainer Name Role Phone Rene Collier MD Primary Care Provider Allergies Active Allergy Reactions Criticality Noted Date Comments Levonorgestrel-Ethinyl Estrad 2024 Medications simvastatin (ZOCOR) 40 mg tablet Take 1 tablet (40 mg total) by mouth at bedtime. Active pantoprazole (PROTONIX) 40 mg EC tablet Take 1 tablet (40 mg total) by mouth 1 (one) time each day if needed. 10/18/2024 Active amLODIPine (NORVASC) 10 mg tablet Take 1 tablet (10 mg total) by mouth 1 (one) time each day. 10/01/2024 Active cetirizine (ZyrTEC) 10 mg tablet Take 1 tablet (10 mg total) by mouth 1 (one) time each day. Active sod sulf-pot chloride-mag sulf (Sutab) 1.479-0.188- 0.225 gram tabletIndication s:Diverticulitis Take 12 each by mouth 2 (two) times a day. 24 tablet 10/24/2024 Active Active Problems Problem Noted Date Diagnosed Date Diverticulitis of large inte douglas without perforation or abscess without bleeding 10/24/2024 Other female genital prolapse 10/24/2024 Gastroesophageal reflux disease without esophagi tis 10/24/2024 Encounters Date Type Department Care Team Description 10/24/2024 11:00 AM EST Office Visit Gastroenterology - [address] [facility] [address] [facility] [address] [place] [phone] Vahe White MD Other female genital prolapse (Primary Dx); Gastroesophageal reflux disease without esophagitis; Diverticulitis of large intestine without perforation or abscess without bleeding 10/24/2024 Telephone Gastroenterology - [address] [phone] Vahe White MD 09/16/2024 Telephone Gastroenterology - [address] [phone] Vahe White MD from Last 3 Months Social History Tobacco Use Types Packs/Day Years Used Date Smoking Tobacco: Never Tobacco Cessation:Counseling Given: Not Answered Alcohol Use Standard Drinks/Week Comments Not Currently 0 (1 standard drink = 0.6 oz pur e alcohol) Comments Unknown Sex and Gender Information Value Date Recorded Sex Assigned at Not on file Legal Sex Female 9:07 PM EST Gender Identity Not on file Sexual Orientation Not on file Obstetrics History Last Filed Vital Signs Vital Sign Reading Time Taken Comments Blood Pressure - - Pulse - - Temperature - - Respiratory Rate - - Oxygen Saturation - - Inhaled Oxygen Concentration - - Weight 80.7 kg (178 lb) 10/24/2024 10:57 AM EST Height 152.4 cm (5') 10/24/2024 10:57 AM EST Body Mass Index 34.76 10/24/2024 10:57 AM EST Plan of Treatment Upcoming Encounters Date Type Department Care Team (Late st Contact Info) Description 11/13/2024 3:00 PM EDT Hospital Encounter [facility] Endoscopy [address] [place] [phone] Vahe White MD [address] [address] Health Maintenance Due Date Last Done Comments Breast Cancer Screening 1960 Cervical Cancer Screening: Pap Smear 1980 Pneumococcal Vaccine: 50+ Years (1 of 1 - PCV) 2009 Zoster Vaccines (1 of 2) 2009 Colorectal Cancer Screening: Colonoscopy 07/22/2022 Depression Screening 07/22/2022 Hepatitis C Screening 07/22/2022 Osteoporosis Screening (Bone Density Screening) 07/22/2022 Social Influencers of Health Screening 07/22/2022 Falls Risk Assessment 2024 DTaP,Tdap,and Td Vaccines (3 - Td or Tdap) 07/12/2030 07/12/2020, 03/17/2019 RSV Immunization Patients 60+ Years Old (1 - 1-dose 75+ series) 2034 COVID-19 Vaccine Completed 06/09/2024, , 06/12/2022, Additional history exists Influenza Vaccine Completed 06/09/2024, , 06/12/2022, Additional history exists HIB Vaccines Aged Out No longer eligi [...] patient's age to complete this topic Meningococcal B Vacine Aged Out No lo nger eligible based on patient's age to complete this topic Pneumococcal Vaccine: Pediatrics (0 to 5 Years) and At-Risk Patients (6 to 64 Years) Aged Out No longer eligible based on patient's age to complete this topic RSV Immunization Patients Under 20 months Aged Out No longer eligible based on patient's age to complete this topic Varicella Vaccines Aged Out No longer eligible based on patient's age to complete this topic Insurance [employer] [place] [id number] Care Teams Roller Stainer Relationship Specialty Start Date End Date Rene Collier MD [address] [place] [address] [place] [address] PCP - General Internal Medicine 09/12/24
--- OUTSIDE RECORDS SUMMARY | 2024-10-31 07:56 | XMS_ITS | Encounter Summary ---
Author Organization [facility] Address [address] [place] [address] Care Team Providers Care Ocean Forwarder Name Role Phone Rene Collier MD Primary Care Provider [phone] Reason for Visit * Reason Comments Diverticulitis hfu Encounter Details Date Type Department Care Team ([facility] st Contact Info) Description 10/24/2024 11:00 AM EST Office Visit Gastroenterology - [address] [place] [phone] Vahe White MD [address] [place] [address] [place] [id number] Other female genital prolapse (Primary Dx); Gastroesophageal reflux disease without esophagitis; Diverticulitis of large intestine without perforation or abscess without bleeding Social History Tobacco Use Types Packs/Day Years [...] on file documented as of this encounter Last Filed Vital Signs Vital Sign Reading Time Taken Comments Blood Pressure - - Pulse - - Temperature - - Respiratory Rate - - Oxygen Saturation - - Inhaled Oxygen Concentration - - Weight 80.7 kg (178 lb) 10/24/2024 10:57 AM EST Height 152.4 cm (5') 10/24/2024 10:57 AM EST Body Mass Index 34.76 10/24/2024 10:57 AM EST documented in this encounter Progress Notes * Vahe White MD - 10/24/2024 11:00 AM EST PROGRESS NOTE Subjective Patient ID: Jenny Mae is a 64 y.o. female. Chief Complaint Patient presents with Diverticulitis hfu Abdominal Pain This is a recurrent problem. The current episode started more than 1 month ago. The onset quality is undetermined. The problem occurs intermittently. The most recent episode lasted 3 days. The problem has been gradually improving. The pain is located in the LLQ. The pain is at a severity of 8/10. The quality of the pain is sharp. The abdominal pain radiates to the LLQ. Associated symptoms includediarrhea. Pertinent negatives include no anorexia, arthralgias, belching or constipation. The pain is aggravated by bowel movement. The pain is relieved by Bowel movements. Prior diagnostic workup includes CT scan. Patient had been hospitalized at [facility] in late August. She presented with her history of diverticulitis and CT scan showing inflammatory changes in the descending colon but some airin her bladder There was no history of instrumentation of her bladder. She does have a history of a hysterectomy and bilateral oophorectomy. There was a repair of a rectocele at [facility] this required revision and removal of the mesh this still does not work well for her and she does have to manually evacuate the rectum She was treated with IV Zosyn urology was consulted outpatient cystoscopy recommended as they note the plan would be for a repeat colonoscopy at some point follow-up with urology and ultimately consideration of a surgical resection Surgery Note: She has had previous diverticulitis flares in the past and is interested in surgery. Her most recent flare resolved after about ~1 week OSH stay (no records on file). She continues to have intermittent residual LLQ pain. In addition, she reports difficulty with prior surgery for her rectocele repair with mesh where she had extrusion of the mesh vaginally and had to have this removed (awaiting prior records). She does not believe she has any mesh left. She does still have to splint regularly with bms. She denies any episodes of FI. From prior records: History of 2 vaginal deliveries requiring vacuum assist History of Present Illness The patient presents for evaluation of multiple health issues including irritable bowel syndrome, rectocele, endometriosis, gallstones, GERD, elevated cholesterol, borderline diabetes, and overweight. Irritable Bowel Syndrome - During her last visit on 09/12/2023, she reported having six bowel movements before 10 AM. - She has been managing her condition with MiraLAX, stool softeners, and milk of magnesia as needed. Rectocele - She is under the care of Dr. George. Endometriosis - She has been diagnosed with endometriosis. - She has undergone a mesh repair procedure and has been under the care of Dr. Deedee Berry. Gallstones - She has documented gallstones, a condition that has been thoroughly discussed with her. GERD - She is currently on pantoprazole for gastroesophageal reflux disease (GERD). - She reports an improvement in her condition following a fundoplication procedure. Elevated Cholesterol - She has elevated cholesterol levels. Borderline Diabetes - She has borderline diabetes. Overweight - She is overweight. FAMILY HISTORY - No family history of colon cancer or polyps MEDICATIONS - MiraLAX - Milk of magnesia - Pantoprazole The patient presents for evaluation of diverticulitis. Diverticulitis - Recently hospitalized due to severe pain attributed to a flare-up of diverticulitis - CT scan performed during hospital stay led to immediate admission - Discussions regarding the necessity of surgery - History of diverticulitis with unusually severe episode - Referred to colorectal surgeon Dr. Eliza Cai at [facility] - Colonoscopy scheduled for 11/13/2024 - Concerns about potential complications from colon removal due to extensive scar tissue - Requested all records related to previous rectocele surgery - Experiences frequent bowel movements, approximately 10 times each morning - Does not report constipation but concerned about restroom availability - Reports pain an hour after bowel movements - Adhering to a high-fiber diet and consuming small meals throughout the day - Discontinued regular exercise - Takes MiraLAX daily - Requested a pill preparation for upcoming colonoscopy due to severe nausea and vomiting with other preparations Rectocele - History of rectocele - Previously consulted with Dr. George in [place] - Scheduled to see a urologist in 11/2024 to rule out any bladder perforations - Will undergo a defecogram at [facility] Hiatal Hernia - Recent episode of severe heartburn and discomfort suspected to be related to hiatal hernia - No heartburn since fundoplication procedure - Discomfort lasted for several days but has since resolved Supplemental information: None MEDICATIONS - MiraLAX Results Laboratory Studies Liver function tests (LFTs) were normal. Testing Colonoscopy in January 2022 showed a sessile serrated polyp less than a centimeter in her descending colon, diverticulosis, and a long twisted colon. Last upper endoscopy from 2018 showed some islands of salmon-colored mucosa but biopsies were negative for H. pylori. Social History Socioeconomic History Marital status: Spouse name: Not on file Number of children: Not on file Years of education: Not on file Highest education level: Not on file Occupational History Not on file Tobacco Use Smoking status: Never Smokeless tobacco: Not on file Substance and Sexual Activity Alcohol use: Not Currently Drug use: Not on file Sexual activity: Not on file Other Topics Concern Not on file Social History Narrative Not on file No past medical history on file. No past surgical history on file. Review of Systems Gastrointestinal: Positive for abdominal pain and diarrhea. Negative for anorexia and constipation. Musculoskeletal: Negative for arthralgias. Objective Physical Exam Constitutional: General: She is awake. Appearance: Normal appearance. She is not ill-appearing, toxic-appearing or diaphoretic. HENT: Head: Normocephalic. Nose: Nose normal. Mouth/Throat: Pharynx: Oropharynx is clear. No oropharyngeal exudate. Eyes: Pupils: Pupils are equal, round, and reactive to light. Abdominal: General: There is no distension. Palpations: Abdomen is soft. There is no mass. Tenderness: There is no abdominal tenderness. There is no right CVA tenderness, left CVA tenderness, guarding or rebound. Hernia: No hernia is present. Musculoskeletal: Cervical back: Neck supple. Skin: Coloration: Skin is not jaundiced or pale. Neurological: General: No focal deficit present. Mental Status: She is alert and oriented to person, place, and time. Psychiatric: Mood and Affect: Mood normal. Behavior: Behavior normal. Behavior is cooperative. Assessment/Plan Assessment & Plan Irritable Bowel Syndrome (IBS) - Reports having six bowel movements before 10 AM - Treated with MiraLAX, stool softeners, and milk of magnesia as needed Rectocele - Sees Dr. George for this condition Endometriosis - Diagnosed with endometriosis - Has seen Dr. Deedee Berry [place] - Gallstones documented and discussed Gastroesophageal Reflux Disease (GERD) - On pantoprazole for GERD - Generally doing well after a fundoplication Elevated cholesterol - Has high cholesterol Borderline diabetes - Has borderline diabetes Overweight - Is overweight PROCEDURE The patient underwent a mesh repair procedure and a fundoplication procedure in the past. Diverticulitis - History of diverticulitis with recent hospitalization due to severe pain - CAT scan performed -Colorectal surgeon in [place] - Scheduled for a colonoscopy on 11/13/2024 here. - Advised to maintain a high-fiber diet and engage in regular physical activity (e.g., walking for 30 minutes daily) - Prescription for Suprep tablets provided - Instructed to take 2 to 3 capfuls of MiraLAX the night before the procedure - Copy of the colonoscopy report to be given post-procedure Surgeon in [place]: [place] C[place], [facility] [place] [phone] Rectocele - History of rectocele with significant bathroom issues - Referred to a colorectal surgeon - Scheduled for a defecogram at [facility] - Concern about potential irreversible complications due to scar tissue - Follow-up with the surgeon after the defecogram to discuss further treatment options Hiatal Hernia - Reported severe heartburn and pain a few weeks ago, which has since improved - History of fundoplication PROCEDURE The patient underwent a hysterectomy and pelvic rectocele repair in the past. She also had a fundoplication procedure. Last Recorded Vitals: Height 1.524 m (60 ), weight 80.7 kg (178 lb). Labs: No results found for: WBC , HGB , HCT , MCV , PLT No results found for: NA , K , CL , CO2 , BUN , CREATININE , CALCIUM , PROT , BILITOT , ALKPHOS , ALT , AST , GLUCOSE No results found for: WOUNDCX , BLOODCX , URINECX , CSFCX , AFBCX , MRSA Pertinent new radiology results/studies: No image results found. MEDICATIONS: Current Hospital Medications: Current Outpatient Medications: amLODIPine (NORVASC) 10 mg tablet, Take 1 tablet (10 mg total) by mouth 1 (one) time each day., Disp: , Rfl: cetirizine (ZyrTEC) 10 mg tablet, Take 1 tablet (10 mg total) by mouth 1 (one) time each day., Disp: , Rfl: pantoprazole (PROTONIX) 40 mg EC tablet, Take 1 tablet (40 mg total) by mouth 1 (one) time each dayif needed., Disp: , Rfl: simvastatin (ZOCOR) 40 mg tablet, Take 1 tablet (40 mg total) by mouth at bedtime., Disp: , Rfl: Home Medications: She has a current medication list which includes the following long-term medication(s): amlodipine,cetirizine, and simvastatin. There is no problem list on file for this patient. Vahe White MD 11:06 AM EST documented in this encounter Plan of Treatment Upcoming Encounters Date Type Department Care Team (Late st Contact Info) Description 11/13/2024 3:00 PM EDT Hospital Encounter [facility] Endoscopy [address] [place] [address] Vahe White MD [address] [address] documented as of this encounter Visit Diagnoses Diagnosis Other female genital prolapse- Primary Gastroesophageal reflux disease without esophagitis Esophageal reflux Diverticulitis of large intestine without perforation or abscess without bleeding documented in this encounter Historical Medications * This list may reflect changes made after this encounter. cetirizine (ZyrTEC) 10 mg tablet Take 1 tablet (10 mg total) by mouth 1 (one) time each day. amLODIPine (NORVASC) 10 mg tablet Take 1 tablet (10 mg total) by mouth 1 (one) time each day. 10/01/2024 pantoprazole (PROTONIX) 40 mg EC tablet Take 1 tablet (40 mg total) by mouth 1 (one) time each day if needed. 10/18/2024 simvastatin (ZOCOR) 40 mg tablet Take 1 tablet (40 mg total) by mouth at bedtime. added in this encounter Care Teams Ocean Forwarder Relationship Specialty Start Date End Date Rene Collier MD [address] [place] [address] [place] [address] PCP - General Internal Medicine 09/12/24 documented as of this encounter
[2024-10-31 11:00] LABS: Estimated Average Glucose 123 mg/dL; Hemoglobin A1c % 5.9 % (<6.0)
[2024-10-31 11:02] LABS: Alanine Aminotransferase 19 U/L (0-31); Anion Gap 13 (12-20); Aspartate Amino Transferase 23 U/L (5-31); Blood Urea Nitrogen 16 mg/dL (9-16); Carbon Dioxide 23 mmol/L (22-29); Chloride 109 mmol/L (96-108); Estimated Glomerular Filt Rate > 60; Glucose Fasting 125 mg/dL (60-99); Potassium 4.2 mmol/L (3.3-5.1); Sodium 141 mmol/L (135-145)
[2024-10-31 11:27] LABS: Microalbum/Creatinine Ratio Ur 18.3 ug/mg cr (<30)
== END 2024-10-31 07:52 | disposition home or self-care (01) ==
LOC: HO.10HDL 07:51
PROVIDERS: Visit Provider Family Medicine
DX: E11.9 Type 2 diabetes mellitus without complications (principal); E78.00 Pure hypercholesterolemia, unspecified; I10 Essential (primary) hypertension; Z79.899 Other long term (current) drug therapy
CPT/HCPCS: 36415; 80051; 82043; 82550; 82565; 82570; 82947; 83036; 84450; 84460; 84520

== ENCOUNTER 2024-11-26 14:06 | Outpatient (AMB) | payer OTHER, SELFPAY ==
--- NOTE | 2024-11-26 14:09 | MHC.OFFVIS ---
Intake Visit Reasons: Cystoscopy Intake Note: Patient is present for Cystoscopy Urology Medication:NONE Antibiotic Allergy:NONE Blood Thinner:NONE Lot:[id number] Exp:12/26/26 Accounting Policy Consultant Required: No Allergies ENVIRONMENTAL Allergy (Mild, Uncoded 11/26/24 14:10) SNEEZING, RUNNY EYES HPI Comments Details: Jenny is a pleasant female. She is a patient of Dr. Collier. She seen for the following urologic issues - question of colovesical fistula Recent hospital admission with diverticular disease Prior numerous pelvic surgeries for endometriosis Found to have air within her bladder Check cystoscopy today shows no evidence of colovesical fistula PFSH Medical History Rectocele Hyperlipidemia GERD (gastroesophageal reflux disease) Endometriosis Surgical History History of bilateral breast reduction surgery History of hysterectomy Social History Household Members: Spouse Housing: House Do you presently have visiting nurse or other home services: No Patient Tobacco Use Status: Never used Tobacco Substance Use Type: Marijuana service: No Review of Systems Const Denies chills and Denies fever(s) Card Reports no additional complaints and Denies syncope Resp Denies cough GI Denies abdominal pain and Denies heartburn Reports as per HPI and Denies change in libido Neuro Denies syncope Psych Denies change in libido Endo Denies change in libido Physical Exam Const General: cooperative, healthy appearing, comfortable and no acute distress Orientation/consciousness: patient oriented x3 HEENT Face and sinus: Yes normal facial exam Mouth: moist mucous membranes Neck Neck: Yes normal visual inspection, Yes full ROM and Yes trachea midline Chest Chest palpation & inspection: normal inspection of the chest Resp Effort & Inspection: normal respiratory effort, able to speak in complete sentences and no respiratory distress GI Inspection: Yes normal to inspection Back/Spine/Pelvis Cervical Spine: normal cervical lordosis Thoracic/Lumbar Spine: thoracic and lumbar spine normal to inspection Skin General skin exam: no rashes or lesions noted Neuro General: patient oriented x3, gait normal, tone normal and moves all extremities Extrem General: Yes normal to inspection and Yes capillary refill normal Office Procedures Cystoscopy Consent Discussed risk and benefit or proposed procedure with the patient. Information consent for procedure given to the patient. Discussed technical aspects, risks, benefits and alternatives in full. Addressed all of the patient's questions and concerns regarding the procedure. The patient demonstrated knowledge and understanding. They wish to proceed with this procedure. Preparation The patient was prepped in the usual manner. A floor worker transfer bay was present and in the room. Genitalia was prepped with betadine solution in a sterile manner. Lidocaine Jelly 2% was placed into the urethra and 16Fr flexible Olympus cystoscope was inserted into the meatus after adequate lubrication. Procedure Meatus normal position Urethra normal Bladder examination with retroflexion of cystoscope Bladder Orifices normal shape and position Trigone normal Bladder Capacity median Trabeculations -0 Cellule Formation - Diverticulum Formation - Mucosal Erythema -- Bladder Tumor - [id number] DISPOSABLE SCOPE URO-G FLEXIBLE SCOPE Procedure code (CPT) selection complete Office Meds lidocaine HCl 2 % mucosal jelly in applicator Performing Provider: Nathanael Mendes MD Performing Location: [facility] Administered by: Stacy Hurd RN on 11/26/24 14:41 Dose Route Admin Location Dispensed Lot Number Expiration Date NDC Manager [employer] 10 mL intra-urethral 10 mL nitrofurantoin monohydrate/macrocrystals 100 mg capsule Performing Provider: Nathanael Mendes MD Performing Location: [facility] Administered by: Stacy Hurd RN on 11/26/24 14:41 Dose Route Admin Location Dispensed Lot Number Expiration Date NDC Manager [employer] 100 mg PO 1 cap Results AMB Urinalysis, Automated UA Leukoctes 0 Simi/uL Last Edit by KUSUM Whitley on 11/26/24 14:22 UA Nitrite Negative Last Edit by KUSUM Whitley on 11/26/24 14:22 UA Urobilinogen 0.2 mg/dL Last Edit by KUSUM Whitley on 11/26/24 14:22 UA Protein 0 mg/dL Last Edit by KUSUM Whitley on 11/26/24 14:22 UA pH 6.0 Last Edit by KUSUM Whitley on 11/26/24 14:22 UA Blood 10 Matt/uL Last Edit by KUSUM Whitley on 11/26/24 14:22 UA Specific [place] 1.010 Last Edit by Siena Ramachandran [facility] on 11/26/24 14:22 UA Ketone Negative Last Edit by Siena Ramachandran, [facility] on 11/26/24 14:22 UA Bilirubin 0 mg/dL Last Edit by Siena Ramachandran, [facility] on 11/26/24 14:22 UA Glucose 0 mg/dL Last Edit by Siena Ramachandran, [facility] on 11/26/24 14:22 AMB Urinalysis, Automated UA Leukoctes 0 Simi/uL Last Edit by Siena Ramachandran [facility] on 11/26/24 15:31 UA Nitrite Negative Last Edit by Siena Ramachandran, [facility] on 11/26/24 15:31 UA Urobilinogen 0.2 mg/dL Last Edit by Siena Ramachandran [facility] on 11/26/24 15:31 UA Protein 0 mg/dL Last Edit by Siena Ramachandran [facility] on 11/26/24 15:31 UA pH 6.0 Last Edit by Siena Ramachandran [facility] on 11/26/24 15:31 UA Blood 10 Matt/uL Last Edit by Siena Ramachandran [facility] on 11/26/24 15:31 UA Specific [place] 1.010 Last Edit by Siena Ramachandran [facility] on 11/26/24 15:31 UA Ketone Negative Last Edit by Siena Ramachandran [facility] on 11/26/24 15:31 UA Bilirubin 0 mg/dL Last Edit by Siena Ramachandran [facility] on 11/26/24 15:31 UA Glucose 0 mg/dL Last Edit by Siena Ramachandran [facility] on 11/26/24 15:31 Results Reviewed Results Reviewed: Laboratory Last Values Urine pH (Auto) 6.0 11/26/24 15:31 Specific [place] (Auto) 1.010 11/26/24 15:31 Urine Protein (Auto) 0 mg/dL 11/26/24 15:31 Glucose (UA)(Auto) 0 mg/dL 11/26/24 15:31 Urine Ketones (Auto) Negative 11/26/24 15:31 Urine Blood (Auto) 10 Matt/uL 11/26/24 15:31 Urine Nitrite (Auto) Negative 11/26/24 15:31 Urine Bilirubin (Auto) 0 mg/dL 11/26/24 15:31 Urine Urobilinogen (Auto) 0.2 mg/dL 11/26/24 15:31 Leukocyte Esterase (Auto) 0 Simi/uL 11/26/24 15:31 Assessment & Plan Assessment & Plan (1) Colovesical fistula: Code(s): N32.1 - Vesicointestinal fistula Category: Medical Plan P.r.n. Orders: Orders AMB Urinalysis Automated 11/26/24 Z13.9 - Encounter for screening, unspecified AMB Cystoscopy 11/26/24 N81.6 - Rectocele AMB Urinalysis Automated 11/26/24 Z13.9 - Encounter for screening, unspecified Patient Instructions: This note is constructed using voice recognition software. While every effort has been made to ensure accuracy battery stacker errors may have been included. Imaging studies, laboratory and physical exam results were discussed and reviewed in detail. No major barriers to patient understanding were identified. An opportunity to ask questions regarding the treatment plan was provided. All questions were answered. The patient expressed understanding and agreement with the above treatment plan. The patient is aware they should contact our office by phone for worsening of their current condition or the appearance of new urologic symptoms. Compliance is encouraged with any medications and followup testing that is ordered. It is a privilege to participate in the urologic care of your patient. If you have any questions or concerns regarding treatment for the above conditions, or other urologic issues, please do not hesitate to contact me. The office telephone contact is [phone]. Sincerely, Dr Nathanael Mendes MD, [facility] - Urology Compassionate Specialist Care for the Genitourinary System Coding Level of Care Code Est Pt Level 3 (62541) Diagnoses Colovesical fistula N32.1 CPT Codes Cystoscopy - CPT: 23775-[id number] ([id number])
--- OUTSIDE RECORDS SUMMARY | 2024-11-26 16:20 | XMS_ITS | Clinical Summary ---
Author Organization [facility] [address] [facility] Address [address] [place] [address] Phone Care Team Providers Care Ui Software Engineer Name Role Phone Rene Collier MD Primary Care Provider [phone] Allergies No known active allergies Medications simvastatin (ZOCOR) 40 mg tablet Take [...] Encounters Date Type Department Care Team Description 11/13/2024 12:00 PM EDT Anesthesia Event [facility] Endoscopy [address] [place] [address] Jeff Calzada MD 11/13/2024 11:13 AM EDT - 11/13/2024 11:59 PM EDT Hospital Encounter [facility] Endoscopy [address] [place] [address] Vahe White MD Hayes, Brett L, CRNA Diverticulitis Discharge Disposition: Home or Self Care 10/24/2024 11:00 AM EST Office Visit Gastroenterology - [address] [place] [phone] Vahe White MD Other female genital prolapse (Primary Dx); Gastroesophageal reflux disease without esophagitis; Diverticulitis of large intestine without perforation or abscess without bleeding 10/24/2024 Telephone Gastroenterology - [address] [phone] Vahe White MD 09/16/2024 Telephone Gastroenterology - [address] [phone] Vahe White MD from Last 3 Months Surgical History Surgery Date Site/Laterality Comments HYSTERECTOMY BREAST SURGERY COLONOSCOPY Medical History Medical History Date Comments GERD (gastroesophageal reflux disease) Hyperlipidemia Diverticulosis Hypertension Social History Tobacco Use Types Packs/Day Years Used Date Smoking Tobacco: Never Smokeless Tobacco: Never Tobacco Cessation:Counseling Given: Not Answered Alcohol Use Standard Drinks/Week Comments Not Currently 0 (1 standard drink = 0.6 oz pur e alcohol) Interpersonal Safety Answer Date Record ed Physical Abuse 11/13/2024 Verbal Abuse 11/13/2024 Comments Unknown Sex and Gender Information Value Date Recorded Sex Assigned at Female 11/13/2024 11:12 AM EDT Legal Sex Female 9:07 PM EST Gender Identity Female 11/13/2024 11:12 AM EDT Sexual Orientation Straight 11/13/2024 11 :12 AM EDT Obstetrics History Last Filed Vital Signs Vital Sign Reading Time Taken Comments Blood Pressure 158/87 11/13/2024 12:39 PM EDT Pulse 65 11/13/2024 12:39 PM EDT Temperature 36.9 ??C (98.4 ??F) 11/13/2024 12:19 PM E DT Respiratory Rate 18 11/13/2024 12:39 PM EDT Oxygen Saturation 98% 11/13/2024 12:39 PM EDT Inhaled Oxygen Concentration - - Weight 74.8 kg (165 lb) 11/13/2024 11:35 AM EDT Height 152.4 cm (5') 11/13/2024 11:35 AM EDT Body Mass Index 32.22 11/13/2024 11:35 AM EDT Plan of Treatment Health Maintenance Due Date Last Done Comments Breast Cancer Screening 1960 Cervical Cancer Screening: Pap Smear 1980 Pneumococcal Vaccine: 50+ Years (1 of 1 - PCV) 2009 Zoster Vaccines (1 of 2) 2009 Depression Screening 07/22/2022 Hepatitis C Screening 07/22/2022 Osteoporosis Screening (Bone Density Screening) 07/22/2022 Social Influencers of Health Screening 07/22/2022 Falls Risk Assessment 11/13/2025 11/13/2024 DTaP,Tdap,and Td Vaccines (3 - Td or Tdap) 07/12/2030 07/12/2020, 03/17/2019 RSV Immunization Adult Patients (1 - 1-dose 75+ series) 2034 Colorectal Cancer Screening: Colonoscopy 11/13/2034 11/13/2024 COVID-19 Vaccine Completed 06/09/2024, , 06/12/2022, Additional [...] age to complete this topic Meningococcal B Vaccine Aged Out No l onger eligible based on patient's age to complete [...] on patient's age to complete this topic Procedures Procedure Name Priority Date/Time Associated Diagnosis Comments COLONOSCOPY Routine 11/13/2024 12:18 PM EDT Diverticulitis TISSUE EXAM Routine 11/13/2024 12:13 PM EDT Diverticulitis from Last 3 Months Results * COLONOSCOPY Anesthesia - MAC; [facility] ENDOSCOPY (11/13/2024 12:18 PM EDT) Anatomical Region Laterality Modality Endoscopy 11/13/2024 12:0 1 PM EDT Impressions 11/13/2024 12:20 PM EDT - One 5 mm polyp in the proximal descending colon, ? removed with a cold snare. Resected and retrieved. ? - One 2 mm polyp at the splenic flexure, removed with ? a jumbo cold forceps. Resected and retrieved. ? - Diverticulosis in the entire examined colon. ? - The examination was otherwise normal on direct and ? retroflexion views. Recommendation: ?- Patient has a contact number available for ? emergencies. The signs and symptoms of potential ? delayed complications were discussed with the patient. ? Return to normal activities tomorrow. Written ? discharge instructions were provided to the patient. ? - Resume previous diet. ? - Continue present medications. ? - Await pathology results. ? - Repeat colonoscopy in 5-10 years for surveillance. Narrative 11/13/2024 12:20 PM EDT [facility] GI Patient Name: Jenny Mae Procedure Date: 11/13/2024 12:01 PM Date of : 1960 Age: 64 Room: ROOM 15 Gender: Female Note Status: Finalized Attending MD: Vahe White MD, Procedure Date No Time: 11/13/2024 Procedure: ? Colonoscopy Indications: ? Follow-up of diverticulitis Providers: ? Vahe White MD Referring MD: ?Vahe White MD Medicines: ? Monitored Anesthesia Care Complications: ? No immediate complications. Estimated Blood Loss: ? Estimated blood loss: none. Procedure: ? After I obtained informed consent, the scope was ? passed under direct vision. Throughout the procedure, ? the patient's blood pressure, pulse, and oxygen ? saturations were monitored continuously. The Olympus ? Pediatric Colonoscope was introduced through the anus ? and advanced to the cecum, identified by appendiceal ? orifice and ileocecal valve. The colonoscopy was ? performed without difficulty. The patient tolerated ? the procedure well. The quality of the bowel ? preparation was good. Findings: ?A 5 mm polyp was found in the proximal descending ? colon. The polyp was sessile. The polyp was removed ? with a cold snare. Resection and retrieval were ? complete. ? A 2 mm polyp was found in the splenic flexure. The ? polyp was sessile. The polyp was removed with a jumbo ? cold forceps. Resection and retrieval were complete. ? Many small and large-mouthed diverticula were found in ? the entire colon. Left colon slightly narrow, no real ? stricture. No real areas of inflammation. No evidence ? endoscopically of diverticulitis. ? The exam was otherwise without abnormality on direct ? and retroflexion views. Procedure Code(s): ? --- Professional --- ? 09320, Colonoscopy, flexible; with removal of ? tumor(s), polyp(s), or other lesion(s) by snare ? technique ? 16673, 59, Colonoscopy, flexible; with biopsy, single ? or multiple Diagnosis Code(s): ? --- Professional --- ? D12.4, Benign neoplasm of descending colon ? D12.3, Benign neoplasm of transverse colon (hepatic ? flexure or splenic flexure) ? K57.32, Diverticulitis of large intestine without ? perforation or abscess without bleeding ? K57.30, Diverticulosis of large intestine without ? perforation or abscess without bleeding CPT copyright 202 [employer]. All rights reserved. The codes documented in this report are preliminary and upon russian language instructor review may be revised to meet current compliance requirements. MD Vahe Hinojosa MD 11/13/2024 12:20:31 PM This report has been signed electronically.Vahe White MD Number of Addenda: 0 Note Initiated On: 11/13/2024 12:01 PM Scope In: Scope Out: ? Endoscopy Department at [facility] - [address] [place] [address], ? [place] [address] Procedure Note Vahe White MD - 11/13/2024 [facility] GI Patient Name: Jenny Mae Procedure Date: 11/13/2024 12:01 PM Date of : 1960 Age: 64 Room: ROOM 15 Gender: Female Note Status: Finalized Attending MD: Vahe White MD, Procedure Date No Time: 11/13/2024 Procedure: Colonoscopy Indications: Follow-up of diverticulitis Providers: Vahe White MD Referring MD: Vahe White MD Medicines: Monitored Anesthesia Care Complications: No immediate complications. Estimated Blood Loss: Estimated blood loss: none. Procedure: After I obtained informed consent, the scope was passed under direct vision. Throughout theprocedure, the patient's blood pressure, pulse, and oxygen saturations were monitored continuously. TheOlympus Pediatric Colonoscope was introduced through theanus and advanced to the cecum, identified byappendiceal orifice and ileocecal valve. The colonoscopy was performed without difficulty. The patient tolerated the procedure well. The quality of the bowel preparation was good. Findings: A 5 mm polyp was found in the proximal descending colon. The polyp was sessile. The polyp was removed with a cold snare. Resection and retrieval were complete. A 2 mm polyp was found in the splenic flexure. The polyp was sessile. The polyp was removed with ajumbo cold forceps. Resection and retrieval werecomplete. Many small and large-mouthed diverticula were foundin the entire colon. Left colon slightly narrow, noreal stricture. No real areas of inflammation. Noevidence endoscopically of diverticulitis. The exam was otherwise without abnormality ondirect and retroflexion views. Procedure Code(s): --- Professional --- 79709, Colonoscopy, flexible; with removal of tumor(s), polyp(s), or other lesion(s) by snare technique 60196, 59, Colonoscopy, flexible; with biopsy,single or multiple Diagnosis Code(s): --- Professional --- D12.4, Benign neoplasm of descending colon D12.3, Benign neoplasm of transverse colon (hepatic flexure or splenic flexure) K57.32, Diverticulitis of large intestine without perforation or abscess without bleeding K57.30, Diverticulosis of large intestine without perforation or abscess without bleeding CPT copyright 2020 [employer]. All rights reserved. The codes documented in this report are preliminary and upon russian language instructor reviewmay be revised to meet current compliance requirements. MD Vahe Hinojosa MD 11/13/2024 12:20:31 PM This report has been signed electronically.Vahe White MD Number of Addenda: 0 Note Initiated On: 11/13/2024 12:01 PM Scope In: Scope Out: Endoscopy Department at [facility] - [address] [place] [phone] IMPRESSION: - One 5 mm polyp in the proximal descending colon, removed with a cold snare. Resected andretrieved. - One 2 mm polyp at the splenic flexure, removedwith a jumbo cold forceps. Resected and retrieved. - Diverticulosis in the entire examined colon. - The examination was otherwise normal on directand retroflexion views. Recommendation: - Patient has a contact number available for emergencies. The signs and symptoms of potential delayed complications were discussed with thepatient. Return to normal activities tomorrow. Written discharge instructions were provided to thepatient. - Resume previous diet. - Continue present medications. - Await pathology results. - Repeat colonoscopy in 5-10 years forsurveillance. Vahe White MD GI~PROCEDURE ORDERABLES Final R esult * Tissue exam (11/13/2024 12:13 PM EDT) Final Diagnosis A. Splenic flexure, polyp: Benign colonic mucosa with lymphoid aggregate. No dysplasia or neoplasia identified. B. Descending Colon, polyp: Tubular adenoma. 11/14/2024 9:41 AM EDT [facility] Gross Description A. Large intestine, Splenic flexure, polyp x1: Labeled polyp x 1 splenic flex . Received in formalin is a soft, rodriguez-pink, 0.3 cm in greatest diameter polypoid tissue which is inked blue and the base, wrapped in paper and submitted in toto in one cassette, one piece, multiple levels. B. Large Intestine, Left/Descendi ng Colon, polyp x1: Labeled polyp x 1 desc colon . Received in formalin is a soft, rodriguez, 0.35 cm in greatest diameter polypoid tissue which is inked green at the base, wrapped in paper and submitted in toto in one cassette, one piece, multiple levels. TS 11/14/2024 9:41 AM EDT [facility] Disclaimer Unless otherwise specified, all tissue is 10% NB formalin fixed and paraffin embedded. 11/14/2024 9:41 AM EDT [facility] Tissue Descending colon structure / Unknown 11/13/2024 12:13 PM EDT 11/13/2024 1:10 PM EDT Tissue specimen (specimen) Descending colon structure / Unknown 11/13/2024 12:13 PM EDT 11/13/2024 1:10 PM EDT Vahe White MD LAB PATHOLOGY ORDERABLES Final Result [facility] [address] [place] [address], from Last 3 Months Insurance [facility] Care Teams Ui Software Engineer Relationship Specialty Start Date End Date Rene Collier MD [address] [place] [address] [place] [phone] PCP - General Internal Medicine 09/12/24
== END 2024-11-26 15:14 | disposition home or self-care (01) ==
PROVIDERS: PCP Family Medicine; Visit Provider Urology
DX: Z13.9 Encounter for screening, unspecified (principal); N81.6 Rectocele
CPT/HCPCS: 52000; 99213

== ENCOUNTER → 2024-11-26 14:06 | Outpatient (BNVA) | payer OTHER, SELFPAY | PROVIDERS: PCP Family Medicine; Visit Provider Urology | DX: N32.1 Vesicointestinal fistula (principal) | CPT/HCPCS: 52000; 81003 ==

== ENCOUNTER 2025-05-14 15:17 | Outpatient (AMB) | payer OTHER, SELFPAY ==
--- NOTE | 2025-05-14 15:15 | MHC.PC.OV ---
Vital Signs 05/14/25 15:24 Height 5 ft 8 in Weight 169 lb BMI 25.7 BP 135/71 Blood Pressure Location Rt brachial Position Sitting Respiration 18 Pulse 89 Pulse Source Pulse Oximeter Temp 98 F Pulse Oximetry (%) 97 Oxygen Delivery Method Room Air Intake Visit Reasons: 4 Month F/U / Dr Collier Obstetrics Scrub Nurse Required: No Allergies ENVIRONMENTAL Allergy (Mild, Uncoded 11/26/24 14:10) SNEEZING, RUNNY EYES Medication List - Last Reconciled 05/14/25 by Andres Vela MD amlodipine 10 mg PO DAILY ascorbic acid (vitamin C) (Vitamin C) 500 mg PO DAILY cetirizine (Zyrtec) 10 mg PO DAILY docusate sodium 100 mg PO BEDTIME magnesium oxide 400 mg PO DAILY multivitamin 1 tab PO DAILY pantoprazole 40 mg PO BEDTIME simvastatin 40 mg PO BEDTIME Tobacco use date assessed: 05/14/25 Fall risk assessment: No Falls in past year Last assessed Fall Risk: 05/14/25 Dental Screening Dental Screen Date: 05/14/25 Did you have a dental visit in the last 12 months?: Yes Did you have a dental problem in the last 6 months where you did not have access to dental care?: No Was dental information given to patient?: Patient has dentist HPI HPI Comments History of Present Illness Details The patient is a 64-year-old female presenting for the management of chronic conditions, including hypertension, hyperlipidemia, GERD, a history of diverticulitis, and depression. She has been experiencing high blood pressure for which she has been on amlodipine 10 mg daily for the past year following a hospitalization for diverticulitis. She previously started on 5 mg of amlodipine but was increased to 10 mg due to persistent hypertension. Additionally, she has experienced hyperlipidemia, managed with simvastatin 40 mg daily. She has a history of chronic acid reflux for which she had surgery (fundoplication) several years ago but continues to take pantoprazole 40 mg at night. Despite attempts to wean off the medication, she experiences significant heartburn without it, and it has been recommended to take the medication in the morning on an empty stomach for better management. The patient's medical history is notable for episodes of diverticulitis, with a significant event occurring in August, and a history of endometriosis leading to multiple surgeries, including a total hysterectomy and rectocele repair. She also mentioned having issues with pelvic floor function and incomplete bowel emptying, leading to consultations with specialists at [facility] for further evaluation. Despite these challenges, surgery for diverticulitis was not recommended recently due to concerns of high risk. The patient reports experiencing episodes of depression and has associated her feelings with her current life stressors, which include family dynamics and financial constraints. She mentioned a history of successful management of situational depression with sertraline under guidance during a past bereavement. Family medical history reveals a significant predisposition to heart disease and diabetes, intensifying her concerns over her current weight and preoccuaption with diet. She is prediabetic, with fluctuating A1c levels most recently at 5.9 in October. Medical History: - Essential Hypertension, treated with amlodipine - Hyperlipidemia, treated with simvastatin - Chronic Gastroesophageal Reflux Disease, treated with pantoprazole - History of recurrent Diverticulitis - Rectocele - History of endometriosis with multiple surgeries - History of Ectopic - Depression - Allergic Rhinitis - Pre-diabetes Surgical History: - Fundoplication for gastroesophageal reflux disease - Total hysterectomy - Rectocele repair with mesh - Mesh removal surgery Medications: - Amlodipine 10 mg daily for hypertension - Simvastatin 40 mg daily for hyperlipidemia - Pantoprazole 40 mg at night for GERD Family History: - Mother and Father had heart disease - Twin brother with diabetes - Sister with breast cancer - Family history of elevated homocysteine levels Diagnostic Results: - A1c was 5.9 in October, indicating prediabetes Social History: - with five grandchildren - Patient denies regular smoking or alcohol use - Occasional marijuana gummies use for insomnia - Reports stress related to family dynamics and current life situation - Reports history of successful exercise and currently seeks weight management support - 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[employer] [facility] Medical History (Updated 05/14/25 @ 16:05 by Andres Vela MD) Depression Prediabetes Hypertension Rectocele Hyperlipidemia GERD (gastroesophageal reflux disease) Endometriosis Surgical History (Updated 05/14/25 @ 16:03 by Andres Vela MD) History of bilateral breast reduction surgery History of hysterectomy Social History Household Members: Spouse Housing: House Do you presently have visiting nurse or other home services: No Patient Tobacco Use Status: Never used Tobacco e-Cigarette/Vaping Use: Never Used Substance Use Type: Marijuana service: No Current occupational status: employed 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 1. Little interest or pleasure in doing things: several days 2. Feeling down, depressed, or hopeless: several days 3. Trouble falling or staying asleep, or sleeping too much: not at all 4. Feeling tired or having little energy: several days 5. Poor appetite or overeating: more than half the days 6. Feeling bad about yourself - or that you are a failure or have let yourself or your family down: several days 7. Trouble concentrating on things, such as reading the newspaper or watching television: not at all 8. Moving or speaking so slowly that other people could have noticed. Or the opposite - being so fidgety or restless that you have been moving around a lot more than usual: not at all 9. Thoughts that you would be better off or of hurting yourself in some way: not at all Total score: 6 Depression Screening Interpretation: Positive Depression Screening Done: Yes 40135 - PHQ-9 Billing: Yes Source: Developed by Drs. Martin Cabral, Sandra Franks, Agustin Bolivar and colleagues, with an educational rei from [employer]. Thrive Questionnaire Date Thrive assessed: 09/10/24 I am a: Patient What is your living situation today?: I have a steady place to live Within the past 12 months, did the food you bought not last and you didn't have the money to get more?: Never true Within the past 12 months, did you worry whether your food would run out before you got money to buy more?: Never true Do you have trouble paying for medicines?: No Do you have trouble getting transportation to medical appointments?: No Do you have trouble paying your heating and electricity bill?: No Do you have trouble taking care of your child, family member or friend?: No Do you have trouble with day-to-day activities such as bathing, preparing meals, shopping, managing finances, etc.?: No Are you currently unemployed and looking for a job?: No Are you interested in more education?: No THRIVE Score: 0 AUDIT C Alcohol Use Questionnaire (AUDIT-C) 1. How often do you have a drink containing alcohol?: Never 3. How often do you have six or more drinks on one occasion?: Never Total Score: 0 Score Reviewed/Action Taken: Yes KEO-7 AMB Questionnaire KEO-7 Date KEO - 7 assessed: 05/14/25 Feeling nervous, anxious, or on edge: 0 = Not at all Not being able to stop or control worryin = Not at all Worrying too much about different things: 0 = Not at all Trouble relaxin = Not at all Being so restless that it is hard to sit still: 0 = Not at all Becoming easily annoyed or irritable: 0 = Not at all Feeling afraid as if something awful might happen: 0 = Not at all Total KEO-7 score (0-4 normal; 5-9 mild; 10-14 moderate; 15-21 severe): 0 Source: Developed by Drs. Martin Cabral, Sandra Franks, Agustin Bolivar and colleagues, with an educational rei from [employer]. KEO-7 Assessment Billing KEO-7 Assessment Tool: KEO-7 Assessment 82640 Review of Systems Const Details: - Cardiovascular: Reports hypertension, denies chest pain - Gastrointestinal: Reports history of diverticulitis, GERD, and rectocele, denies current abdominal pain - Neurological: Denies smoking, drug use - Psychiatric: Reports depression, denies thoughts of self-harm All systems reviewed & are unremarkable except as reviewed in HPI and above Physical exam (Primary Care) Vital Signs: Last Vital Signs Temp 98 F 05/14/25 15:24 Pulse 89 05/14/25 15:24 Resp 18 05/14/25 15:24 BP 135/71 05/14/25 15:24 Pulse Ox 97 05/14/25 15:24 Oxygen Delivery Method Room Air 05/14/25 15:24 BMI result Body Mass Index 25.7 Tobacco/Smoking Status: Tobacco use Status Tobacco use date assessed 05/14/25 05/14/25 15:16 Patient Tobacco Use Status Never used Tobacco 05/14/25 15:16 e-Cigarette/Vaping Use Never Used 05/14/25 15:28 PHQ-9: PHQ-9 Score PHQ-9: Total score 6 05/14/25 15:47 Depression Screening Interpretation: Positive Thrive Assessment: Date of Thrive Assessment Date Thrive assessed 09/10/24 05/14/25 15:16 Const Other: General: Alert and oriented, Well nourished, No acute distress. Eye: Pupils are equal, round and reactive to light, Intact accommodation, Extraocular movements are intact, Normal conjunctiva, Vision unchanged. HENT: Normocephalic, Atraumatic, Tympanic membranes are clear, Normal hearing, Oral mucosa is moist, No pharyngeal erythema, Ear canals patent. Respiratory: Lungs CTA bilaterally, No wheeze, Respirations are non-labored. Cardiovascular: Regular rate, Regular rhythm, S1 auscultated, S2 auscultated, No murmur, Good pulses equal in all extremities, Normal peripheral perfusion, No edema. Gastrointestinal: Soft, Non-tender, Non-distended, Normal bowel sounds, No organomegaly. Musculoskeletal: Normal range of motion, Normal strength, No tenderness, No swelling, No deformity, Normal gait. Integumentary: Warm, Dry, [place], Intact. Neurologic: Alert, Oriented, Normal sensory, Normal motor function, No focal defects, Cranial Nerves II-XII are grossly intact, Normal deep tendon reflexes. Psychiatric: Cooperative, Appropriate mood & affect, Normal judgment, Mild depression noted. Coding Level of Care Code New Pt Level 4 (69896) Complex EM visit Add On G2211 Diagnoses Primary hypertension I10 Hypertension type: primary hypertension Other hyperlipidemia E78.49 Hyperlipidemia type: other hyperlipidemia History of diverticulitis of colon Z87.19 Rectocele N81.6 Prediabetes R73.03 Current mild episode of major depressive disorder without prior episode F32.0 Depression Type: major depressive disorder Major depression recurrence: single episode Active/Remission status: currently active Major depression episode severity: mild Gastroesophageal reflux disease without esophagitis K21.9 Esophagitis presence: without esophagitis Additional Codes KEO-7 Assessment Billing - KEO-7 Assessment Tool: KEO-7 Assessment 31869 ([id number]) PHQ-9 - 71968 - PHQ-9 Billing: Yes ([id number]) Assessment & Plan Assessment & Plan (1) Hypertension: Comment: - Continue amlodipine 10 mg daily - Pressures WNL Code(s): I10 - Essential (primary) hypertension Category: Medical Qualifiers: Hypertension type: primary hypertension Qualified Code(s): I10 - Essential (primary) hypertension (2) Hyperlipidemia: Comment: - Continue simvastatin 40 mg daily - Repeat Lipid Panel Today Code(s): E78.5 - Hyperlipidemia, unspecified Category: Medical Qualifiers: Hyperlipidemia type: other hyperlipidemia Qualified Code(s): E78.49 - Other hyperlipidemia (3) History of diverticulitis of colon: Comment: - Monitor symptoms, follow-up with specialists as necessary, avoid surgery presently per specialist advice Code(s): Z87.19 - Personal history of other diseases of the digestive system Category: Surgical (4) Rectocele: Comment: - Continue consultations and follow-up with specialist for management, pelvic floor exercises planned Code(s): N81.6 - Rectocele Category: Medical (5) Prediabetes: Comment: - Monitor A1c and lifestyle modification referral for weight management Code(s): R73.03 - Prediabetes Category: Medical (6) Depression: Comment: - PHQ 9: 6 (Mild) - Initiate sertraline, monitor for mood improvement and depressive symptoms Code(s): F32.A - Depression, unspecified Category: Medical Qualifiers: Depression Type: major depressive disorder Major depression recurrence: single episode Active/Remission status: currently active Major depression episode severity: mild Qualified Code(s): F32.0 - Major depressive disorder, single episode, mild (7) GERD (gastroesophageal reflux disease): Comment: - Adjust timing of pantoprazole to morning 40 mg to optimize efficacy Code(s): K21.9 - Gastro-esophageal reflux disease without esophagitis Category: Medical Qualifiers: Esophagitis presence: without esophagitis Qualified Code(s): K21.9 - Gastro-esophageal reflux disease without esophagitis Plan: Health Maintenance: - Discussed healthy lifestyle measures for weight control - Recommended continued monitoring of blood pressure and cholesterol - Advised regular surveillance of A1c for diabetes risk control Patient was informed and verbally consented to the use of an ambient scribe for clinic note documentation during this visit. Plan I discussed the management of the patient's chronic conditions, aiming to optimize her hypertension and lipid levels with current medications, which will be continued at current doses. For GERD, I recommended changing the timing of pantoprazole administration for effective control. We reviewed her diverticulosis and the need to avoid surgery for now per specialist recommendations. To manage her depression, we agreed to initiate sertraline and observe the effects. We talked about her pre-diabetes status with an emphasis on monitoring A1c regularly and suggested lifestyle changes to aid her weight control and overall wellness. We also reviewed her significant family history of heart disease and diabetes, guiding our decisions to meticulously optimize her cardiovascular risk factors. Orders: Orders Hemoglobin A1c Today R73.03 - Prediabetes Lipid Panel Today E78.49 - Other hyperlipidemia TSH reflex Free T4 Today R00.2 - Palpitations Medications: New sertraline 50 mg PO DAILY 90 tabs 0RF Discontinued amlodipine Discontinued Reason: Doctor's Order 5 mg See Protocol PO DAILY Patient Instructions: - Continue taking all prescribed medications as directed. - Take pantoprazole in the morning before breakfast. - Monitor blood pressure regularly and report any significant changes or concerns. - Keep a record of dietary intake and exercise; aim for calorie balance. - Schedule a follow-up to discuss further blood work and imaging if needed. - Watch for symptoms of depression and report any changes. - Contact the clinic if experiencing signs of infection, increased pain, or if any condition worsens.
[2025-05-14 15:24] VITALS: BP 135/71; PULSE 89; RESP 18; TEMP 36.6; O2SAT 97; BMI 25.7
== END 2025-05-14 15:55 | disposition home or self-care (01) ==
LOC: HO.HMCHD 15:18
PROVIDERS: PCP Student in an Organized Health Care Education/Training Program; Visit Provider Student in an Organized Health Care Education/Training Program
DX: I10 Essential (primary) hypertension (principal); E78.49 Other hyperlipidemia; Z87.19 Personal history of other diseases of the digestive system; N81.6 Rectocele; R73.03 Prediabetes; F32.0 Major depressive disorder, single episode, mild; K21.9 Gastro-esophageal reflux disease without esophagitis

== ENCOUNTER → 2025-05-14 15:17 | Outpatient (BNVA) | payer OTHER, SELFPAY | PROVIDERS: PCP Student in an Organized Health Care Education/Training Program; Visit Provider Student in an Organized Health Care Education/Training Program | DX: I10 Essential (primary) hypertension (principal); E78.49 Other hyperlipidemia; N81.6 Rectocele; R73.03 Prediabetes; F32.0 Major depressive disorder, single episode, mild; K21.9 Gastro-esophageal reflux disease without esophagitis; Z87.19 Personal history of other diseases of the digestive system; Z79.899 Other long term (current) drug therapy; Z13.31 Encounter for screening for depression; Z13.39 Encounter for screening examination for other mental health and behavioral disorders | CPT/HCPCS: 96127 ==

== ENCOUNTER 2025-05-29 07:11 | Outpatient (REF) | payer OTHER, SELFPAY ==
[2025-05-29 08:35] LABS: Cholesterol 202 mg/dL (<200); HDL Cholesterol 55 mg/dL (>40); Triglycerides 225 mg/dL (<150)
== END 2025-05-29 07:12 | disposition home or self-care (01) ==
LOC: HO.LAB 07:11
PROVIDERS: PCP Student in an Organized Health Care Education/Training Program; Visit Provider Student in an Organized Health Care Education/Training Program
DX: R00.2 Palpitations (principal); R73.03 Prediabetes; E78.49 Other hyperlipidemia
CPT/HCPCS: 36415; 80061; 83036; 84443

== ENCOUNTER 2025-06-26 08:01 | Outpatient (AMB) | payer OTHER, SELFPAY ==
--- OUTSIDE RECORDS SUMMARY | 2025-06-26 08:05 | XMS_ITS | Clinical Summary ---
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 Name Role Phone Rene Collier MD Primary Care Provider Allergies No known active allergies Medications amlodipine-kulwinder coxib 10-200 mg Tab 09/09/2024 Active pantoprazole in 0.9% sod chlor 40 mg/50 mL (0.8 mg/mL) PgBk Active simvastatin (ZOCOR) 40 MG tablet take 1 tablet by mouth everyday at bedtime 07/21/2024 Active Family History Medical History Relation Comments Autoimmune disease Brother Autoimmune disease Sister 1 Breast cancer Sister 2 Relation Status Comments Brother Sister 1 Sister 2 Social History Tobacco Use Types Packs/Day Years Used Date Smoking Tobacco: Never Tobacco Cessation:Counseling Given: Not Answered Alcohol Use Standard Drinks/Week Comments Not Currently 0 (1 standard drink = 0.6 oz pur e alcohol) Education Answer Date Recorded Are you interested in more education? Not on juanito e 12/16/2022 Are you concerned about learning? Not on file 12/16/2022 No 12/16/2022 No 12/16/2022 Digital Access Answer Date Recorded No 01/16/2023 No 01/16/2023 Reliable internet access at home? Not on file 01/16/2023 Device with a working camera? Not on file Comments Unknown Sex and Gender Information Value Date Recorded Sex Assigned at Not on file Legal Sex Female 2:08 PM EDT Gender Identity Not on file Sexual Orientation Not on file Last Filed Vital Signs Vital Sign Reading Time Taken Comments Blood Pressure 134/82 01/20/2025 2:16 PM EDT Pulse 78 01/20/2025 2:16 PM EDT Temperature - - Respiratory Rate - - Oxygen Saturation - - Inhaled Oxygen Concentration - - Weight - - Height - - Body Mass Index - - Plan of Treatment Health Maintenance Due Date Last Done Comments Adult Td,Tdap Booster 1959 LIPID PANEL 1959 DEPRESSION SCREENING 1971 HEPATITIS C SCREENING 1977 HIV ONE-TIME SCREENING (18-6 5 YEARS) 1977 MAMMOGRAM 1999 COLOGUARD 2004 COLONOSCOPY 2004 COLORECTAL CANCER SCREENING 2004 FIT TEST 2004 FOBT 2004 SIGMOIDOSCOPY 2004 VIRTUAL COLONOSCOPY 2004 PNEUMOCOCCAL VACCINES (50+ y ears) (1 of 1 - PCV) 2009 ZOSTER VACCINES (1 of 2) 2009 OSTEOPOROSIS SCREENING INITI AL (ONE-TIME) 2024 INFLUENZA VACCINE (#1) 2025 COVID-19 VACCINE (1 - 2024-2 6 season) 2025 RSV VACCINE (1 - 1-dose 75+ series) 2034 SMOKING STATUS SCREENING (On ce After 26 Yrs) Completed 01/20/2025 HEPATITIS A VACCINES Aged Out No long er eligible based on patient's age to complete this topic HIB VACCINES Aged Out No longer eligi ble based on patient's age to complete this topic MENINGOCOCCAL VACCINES (ACWY) Aged Out No longer eligible based on patient's age to complete this topic MENINGOCOCCAL VACCINES (B) Aged Out N o longer eligible based on patient's age to complete this topic Medical Devices Not on file Insurance [employer] PLUS PPO [employer] PLUS PPO [employer] G[employer] PLUS PPO [employer] G[employer] PLUS PPO [employer] PLUS PPO [employer] PLUS PPO [employer] PLUS PPO [employer] PLUS PPO [employer] PLUS PPO Care Teams Hazmat Tanker Driver Relationship Specialty Start Date End Date Rene Collier MD [address] [place] [address] [place] [address] PCP - General Internal Medicine 05/10/22 Additional Source Comments The information contained in this document represents components of the legal health record. It is not the complete legal health record.[facility]
--- OUTSIDE RECORDS SUMMARY | 2025-06-26 08:05 | XMS_ITS | Clinical Summary ---
Author Organization [facility] [address] [facility] Address [address] [place] [address] Phone Care Team Providers Care Home Service Consultant Name Role Phone Rene Collier MD Primary Care Provider [phone] Allergies No known active allergies Medications simvastatin [...] Gastroesophageal reflux disease without esophagi tis 10/24/2024 Surgical History Surgery Date Site/Laterality Comments HYSTERECTOMY [...] Safety Answer Date Record ed Physical Abuse Unrecognized value 11/13/2024 Verbal Abuse Unrecognized value 11/13/2024 Comments Unknown Sex and Gender Information [...] 64 11/13/2024 12:39 PM EDT Temperature 36.9 C (98.4 F) 11/13/2024 12:19 PM EDT Respiratory Rate 18 11/13/2024 12:39 PM EDT [...] 2009 Zoster Vaccines (1 of 2) 2009 Hepatitis C Screening 07/22/2022 Osteoporosis Screening (Bone Density Screening) 07/22/2022 Social Influencers of Health Screening 07/22/2022 Depression Screening 08/20/2024 COVID-19 Vaccine ( season) 2025 06/09/2024, 06/03/2023, 06/12/2022, Additional history exists Influenza Vaccine (#1) 2025 , 06/03/2023, 06/12/2022, Additional history exists Falls Risk Assessment 11/13/2025 11/13/2024 Colorectal Cancer Screening: Colonoscopy 11/13/2034 11/13/2024 DTaP,Tdap,and Td Vaccines (4 - Td or Tdap) 05/05/2035 05/05/2025, 07/12/2020, 03/17/2019 RSV Immunization Adult Patients Completed 05/05/2025 HIB Vaccines Aged Out No longer eligi [...] COLONOSCOPY Routine 11/13/2024 12:18 PM EDT Diverticulitis from Last 3 Months or Most Recently Relevant to Health Maintenance Results * COLONOSCOPY Anesthesia - MAC; [facility] ENDOSCOPY (11/13/2024 12:18 PM EDT) Anatomical Region Laterality Modality Endoscopy 11/13/2024 12:0 1 PM EDT Impressions 11/13/2024 12:20 PM EDT - One 5 mm polyp in the proximal descending colon, removed with a cold snare. Resected and retrieved. - One 2 mm polyp at the splenic flexure, removed with a jumbo cold forceps. Resected and retrieved. - Diverticulosis in the entire examined colon. - The examination was otherwise normal on direct and retroflexion views. Recommendation: - Patient has a contact number available for emergencies. The signs and symptoms of potential delayed complications were discussed with the patient. Return to normal activities tomorrow. Written discharge instructions were provided to the patient. - Resume previous diet. - Continue present medications. - Await pathology results. - Repeat colonoscopy in 5-10 years for surveillance. Narrative 11/13/2024 12:20 PM EDT [facility] GI Patient Name: Jenny Mae [...] scope was passed under direct vision. Throughout the procedure, the patient's blood pressure, pulse, and oxygen saturations were monitored continuously. The Olympus Pediatric Colonoscope was introduced through the anus and advanced to the cecum, identified by appendiceal orifice and ileocecal valve. The colonoscopy was [...] The polyp was removed with a jumbo cold forceps. Resection and retrieval were complete. Many small and large-mouthed diverticula were found in the entire colon. Left colon slightly narrow, no real stricture. No real areas of inflammation. No evidence endoscopically of diverticulitis. The exam was otherwise without abnormality on direct and retroflexion views. Procedure Code(s): --- Professional --- 55212, Colonoscopy, flexible; with removal of tumor(s), polyp(s), or other lesion(s) by snare technique 79323, 59, Colonoscopy, flexible; with biopsy, single or multiple Diagnosis Code(s): --- Professional --- D12.4, Benign neoplasm of descending colon D12.3, Benign neoplasm of transverse colon (hepatic flexure or splenic flexure) K57.32, Diverticulitis of large intestine without perforation or abscess without bleeding K57.30, Diverticulosis of large intestine without perforation or abscess without bleeding CPT copyright 2020 [employer]. All rights reserved. The codes documented in this report are preliminary and upon medical record coder review may be revised to meet current compliance requirements. MD Vahe Hinojosa MD 11/13/2024 12:20:31 PM This report has been signed electronically.Vahe White MD Number of Addenda: 0 Note Initiated On: 11/13/2024 12:01 PM Scope In: Scope Out: Endoscopy Department at [facility] - [address] [place] [id number] Procedure Note Vahe White MD - 11/13/2024 [facility] GI Patient Name: Jenny Mae [...] retroflexion views. Procedure Code(s): --- Professional --- 76472, Colonoscopy, flexible; with removal of tumor(s), polyp(s), or other lesion(s) by snare technique 24938, 59, Colonoscopy, flexible; with biopsy,single or multiple Diagnosis Code(s): --- Professional --- D12.4, Benign neoplasm of descending colon D12.3, Benign neoplasm of transverse colon (hepatic flexure or splenic flexure) K57.32, Diverticulitis of large intestine without perforation or abscess without bleeding K57.30, Diverticulosis of large intestine without perforation or abscess without bleeding CPT copyright 2020 [employer]. All rights reserved. The codes documented in this report are preliminary and upon medical record coder reviewmay be revised to meet current compliance requirements. MD Vahe Hinojosa MD 11/13/2024 12:20:31 PM This report has been signed electronically.Vahe White MD Number of Addenda: 0 Note Initiated On: 11/13/2024 12:01 PM Scope In: Scope Out: Endoscopy Department at [facility] - [address] [place] [id number] IMPRESSION: - One 5 mm polyp in [...] White MD GI~PROCEDURE ORDERABLES Final R esult from Last 3 Months or Most Recently Relevant to Health Maintenance Insurance [employer] Care Teams Home Service Consultant Relationship Specialty Start Date End Date Rene Collier MD [address] [place] [address] [place] [id number] PCP - General Internal Medicine 09/12/24
[2025-06-26 08:06] VITALS: BP 163/83; PULSE 68; TEMP 36.9; O2SAT 98; BMI 24.9
--- NOTE | 2025-06-26 08:06 | A.OFFPC_ITS ---
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 Required: No Accompanied by: Self / Same As Patient Allergies ENVIRONMENTAL Allergy (Mild, Uncoded 11/26/24 14:10) SNEEZING, RUNNY EYES Tobacco use date assessed: 06/26/25 Fall risk assessment: No Falls in past year Last assessed Fall Risk: 06/26/25 Dental Screening Dental Screen Date: 06/26/25 Did you have a dental visit in the last 12 months?: Yes Did you have a dental problem in the last 6 months where you did not have access to dental care?: No HPI HPI Comments History of Present Illness Details The patient is a 64-year-old female presenting for a follow-up visit to discuss her depression. She reports feeling anxious but notes that the recently prescribed sertraline 50 mg has helped, making her feel less down and reducing feelings of dread, though she felt sick for a few weeks after starting it. The patient has a history of pelvic floor issues, including a rectocele and incomplete bowel emptying. A prior test confirmed she does not fully empty her bowels, and she is supposed to have one more test before starting physical therapy, but has had difficulty contacting the specialist's office to schedule. Regarding her metabolic health, her cholesterol was last checked and found to be high at 225, with an LDL of 102 and triglycerides of 225, which prompted the initiation of atorvastatin 40 mg. Her thyroid function was normal with a TSH of 2.14. She was noted to be prediabetic, with her hemoglobin A1c increasing from 5.9 to 6.0. She has a history of gestational diabetes. Her other medical history includes hypertension managed with amlodipine 10 mg, allergies treated with cetirizine, and acid reflux managed with pantoprazole following a Nelly fundoplication for a hiatal hernia. The patient has never smoked and had a bone scan approximately 20 years ago. She has lost 5 pounds since her last visit due to a recent lack of appetite. Medical History: - Anxiety/Depression - Hypertension - Allergies - Gastroesophageal reflux disease - Hiatal hernia - Pelvic floor dysfunction with incomple te bowel emptying - Rectocele - Hyperlipidemia - Prediabetes - History of gestational diabetes Surgical History: - Nelly fundoplication for hiatal herni a Medications: - Amlodipine 10 mg for blood pressure - Cetirizine for allergies - Magnesium - Pantoprazole for acid reflux - Sertraline 50 mg for anxiety - Atorvastatin 40 mg for cholesterol Diagnostic Results: - Labs: - Total cholesterol: 225 - LDL cholesterol: 102 - Triglycerides: 225 - TSH: 2.14 (normal) - Hemoglobin A1c: 6.0 (previously 5.9) - Tests and Diagnostics: - A test observing defecation showed inc omplete bowel emptying. Social History: - Tobacco: Patient denies ever smoking. - Nutrition: Reports a recent lack of ap petite. - Weight Management: Patient has lost 5 pounds since her last visit. COUNT INCLUDES THE [facility] Medical History Depression Prediabetes Hypertension Rectocele Hyperlipidemia GERD (gastroesophageal reflux disease) Endometriosis Surgical History History of colonoscopy (~11/13/24) History of bilateral breast reduction surgery History of hysterectomy Family History (Updated 06/26/25 @ 08:20 by Colette Chacon MA) Mother No problems noted. Father No problems noted. 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 1. Little interest or pleasure in doing things: not at all 2. Feeling down, depressed, or hopeless: not at all 3. Trouble falling or staying asleep, or sleeping too much: not at all 4. Feeling tired or having little energy: not at all 5. Poor appetite or overeating: not at all 6. Feeling bad about yourself - or that you are a failure or have let yourself or your family down: not at all 7. Trouble concentrating on things, such as reading the newspaper or watching television: not at all 8. Moving or speaking so slowly that other people could have noticed. Or the opposite - being so fidgety or restless that you have been moving around a lot more than usual: not at all 9. Thoughts that you would be better off or of hurting yourself in some way: not at all Total score: 0 Source: Developed by Drs. Martin Cabral, Sandra Franks, Agustin Bolivar and colleagues, with an educational rei from [employer]. Thrive Questionnaire Date Thrive assessed: 06/26/25 I am a: Patient Within the past 12 months, did the food you bought not last and you didn't have the money to get more?: Never true Within the past 12 months, did you worry whether your food would run out before you got money to buy more?: Never true Do you have trouble paying for medicines?: No Do you have trouble getting transportation to medical appointments?: No Do you have trouble paying your heating and electricity bill?: No Do you have trouble taking care of your child, family member or friend?: No Do you have trouble with day-to-day activities such as bathing, preparing meals, shopping, managing finances, etc.?: No Are you currently unemployed and looking for a job?: No Are you interested in more education?: No THRIVE Score: 0 AUDIT C Alcohol Use Questionnaire (AUDIT-C) 1. How often do you have a drink containing alcohol?: Monthly or less 2. How many drinks containing alcohol do you have on a typical day when you are drinking?: 1 or 2 3. How often do you have six or more drinks on one occasion?: Less than monthly Total Score: 2 KEO-7 AMB Questionnaire KEO-7 Date KEO - 7 assessed: 06/26/25 Feeling nervous, anxious, or on edge: 3 = Nearly every day Not being able to stop or control worryin = Not at all Worrying too much about different things: 0 = Not at all Trouble relaxin = Not at all Being so restless that it is hard to sit still: 0 = Not at all Becoming easily annoyed or irritable: 0 = Not at all Feeling afraid as if something awful might happen: 0 = Not at all Total KEO-7 score (0-4 normal; 5-9 mild; 10-14 moderate; 15-21 severe): 3 Source: Developed by Drs. Martin Cabral, Sandra Franks, Agustin Bolivar and colleagues, with an educational rei from [employer]. Review of Systems Narrative - General: Reports loss of appetite. - Psychiatric: Reports feeling anxious and previously feeling down with dread . - Gastrointestinal: Reports not emptying her bowels completely. All systems reviewed & are unremarkable except as reviewed in HPI and above Physical exam (Primary Care) Vital Signs: Last Vital Signs Temp 98.4 F 06/26/25 08:06 Pulse 68 06/26/25 08:06 BP 163/83 H 06/26/25 08:06 Pulse Ox 98 06/26/25 08:06 Oxygen Delivery Method Room Air 06/26/25 08:06 BMI result Body Mass Index 24.9 Tobacco/Smoking Status: Tobacco use Status Tobacco use date assessed 06/26/25 06/26/25 08:08 Patient Tobacco Use Status Never used Tobacco 06/26/25 08:08 e-Cigarette/Vaping Use Never Used 06/26/25 08:08 PHQ-9: PHQ-9 Score PHQ-9: Total score 0 06/26/25 08:08 Thrive Assessment: Date of Thrive Assessment Date Thrive assessed 06/26/25 06/26/25 08:08 Narrative General: Alert and oriented, Well nourished, No acute distress. Eye: Pupils are equal, round and reactive to light, Intact accommodation, Extraocular movements are intact, Normal conjunctiva, Vision unchanged. HENT: Normocephalic, Atraumatic, Tympanic membranes are clear, Normal hearing, Oral mucosa is moist, No pharyngeal erythema, Ear canals patent. Respiratory: Lungs CTA bilaterally, No wheeze, Respirations are non-labored. Cardiovascular: Regular rate, Regular rhythm, S1 auscultated, S2 auscultated, No murmur, Good pulses equal in all extremities, Normal peripheral perfusion, No edema. Gastrointestinal: Soft, Non-tender, Non-distended, Normal bowel sounds, No organomegaly. Musculoskeletal: Normal range of motion, Normal strength, No tenderness, No swelling, No deformity, Normal gait. Integumentary: Warm, Dry, [place], Intact. Neurologic: Alert, Oriented, Normal sensory, Normal motor function, No focal defects, Cranial Nerves II-XII are grossly intact, Normal deep tendon reflexes. Psychiatric: Cooperative, Appropriate mood & affect, Normal judgment, Reports feeling anxious but improved with medication, considering increasing sertraline dosage. Coding Level of Care Code Est Pt Level 4 (28521) Complex EM visit Add On G2211 Diagnoses Current mild episode of major depressive disorder without prior episode F32.0 Depression Type: major depressive disorder Major depression recurrence: single episode Active/Remission status: currently active Major depression episode severity: mild Prediabetes R73.03 Primary hypertension I10 Hypertension type: primary hypertension Other hyperlipidemia E78.49 Hyperlipidemia type: other hyperlipidemia Rectocele N81.6 Assessment & Plan Assessment & Plan (1) Depression: Comment: - The patient reports her mood has improved with sertraline 50 mg. She is tolerating the medication well after initial side effects. - The plan is to increase the dose to 75 mg to further improve her symptoms. - She is instructed to return to the 50 mg dose if she feels sick. Code(s): F32.A - Depression, unspecified Category: Medical Qualifiers: Depression Type: major depressive disorder Major depression recurrence: single episode Active/Remission status: currently active Major depression episode severity: mild Qualified Code(s): F32.0 - Major depressive disorder, single episode, mild (2) Prediabetes: Comment: - The patient's hemoglobin A1c has risen from 5.9 to 6.0. - She has a history of gestational diabetes. - The plan is to focus on dietary changes to manage her blood sugar. - Labs will be repeated in three months to monitor progress. Code(s): R73.03 - Prediabetes Category: Medical (3) Hypertension: Comment: - Continue amlodipine 10 mg daily - Pressures elevated today however patient under significant stressor given husbands health Code(s): I10 - Essential (primary) hypertension Category: Medical Qualifiers: Hypertension type: primary hypertension Qualified Code(s): I10 - Essential (primary) hypertension (4) Hyperlipidemia: Comment: - The patient's recent labs showed elevated cholesterol and triglycerides. - She is on atorvastatin 40 mg. - The plan is to continue the current medication to lower her cholesterol levels. Code(s): E78.5 - Hyperlipidemia, unspecified Category: Medical Qualifiers: Hyperlipidemia type: other hyperlipidemia Qualified Code(s): E78.49 - Other hyperlipidemia (5) Rectocele: Comment: - The patient is pending further evaluation and physical therapy but is having difficulty contacting the specialist's office. - She is advised to call again to schedule her appointments. - The management of her rectocele will be addressed by the specialist. Code(s): N81.6 - Rectocele Category: Medical Plan: Health Maintenance: - Osteoporosis screening: Discussed performing a bone scan, as the last one was approximately 20 years ago. This will be deferred to a future visit. - Prediabetes management: Recommended dietary changes to prevent progression to diabetes. Plan to recheck labs in 3 months. Patient was informed and verbally consented to the use of an ambient scribe for clinic note documentation during this visit. Plan I spoke with the patient about her anxiety and the positive effect she's had from sertraline. We discussed increasing the dose from 50 mg to 75 mg to achieve a better therapeutic effect, and I advised her she could return to the 50 mg dose if she experiences any adverse side effects. We reviewed her recent lab results, noting the increase in her hemoglobin A1c to 6.0, and I recommended dietary changes with a plan to recheck labs in 3 months. I confirmed she should continue her atorvastatin 40 mg for her high cholesterol. We also discussed her pending specialist follow-up for pelvic floor dysfunction, and I encouraged her to be persistent in contacting their office. Finally, we touched on health maintenance, specifically a bone scan, but decided to defer ordering it at this time. Medications: New sertraline 75 mg (1.5 x 50 mg) PO DAILY 135 tabs 0RF 90 days Discontinued sertraline Discontinued Reason: Doctor's Order 50 mg PO DAILY 90 tabs 0RF Patient Instructions: - I am sending a new prescription to increase your sertraline dose to 75 mg. - If you feel sick on the new dose, please go back to taking the 50 mg dose. - Continue to try and contact the specialist's office to schedule your follow-up test and physical therapy for your pelvic floor issues. - Please focus on making dietary changes to help manage your prediabetes. - We will repeat your lab work in 3 months to see how you are doing. - Continue taking all your other medications as prescribed, including amlodipine, cetirizine, magnesium, pantoprazole, and atorvastatin.
== END 2025-06-26 08:39 | disposition home or self-care (01) ==
LOC: HO.HMCHD 08:01
PROVIDERS: PCP Student in an Organized Health Care Education/Training Program; Visit Provider Student in an Organized Health Care Education/Training Program
DX: F32.0 Major depressive disorder, single episode, mild (principal); R73.03 Prediabetes; I10 Essential (primary) hypertension; E78.49 Other hyperlipidemia; N81.6 Rectocele